=== PATIENT | female | born 1950 | race African-American/Black ===

== ENCOUNTER 2016-06-09 13:15 | Emergency (ER) | payer OTHER ==
[~2016-06-09] VITALS: Ht 157.5 cm; Wt 48.1 kg
[~2016-06-09 13:15] MED LIST: CIPRO500 MG PO; CLINDAMYCIN HC150 MG ORAL; COLACE100 MG ORAL; HEPARIN SO5000 UNIT2 SUBQ; HYDROCHLOROTHIA25 MG ORAL; HYDROCODON-ACE1 EA13 ORAL; LORAZEPAM2 MG ORAL; METFORMIN HCL500 M1 ORAL; METOPROLOL TART25 MG ORAL; MIRALAX17 G2 ORAL; MS CONTIN30 MG ORAL; SENOKOT8.6 MG PO; TRAMADOL HCL50 MG ORAL
[2016-06-09 13:42] VITALS: BP 144/96
[2016-06-09] MEDS ORDERED: Morphine Sulfate 2mg/ml Inj IVP ONE (13:45)
[2016-06-09] MEDS ORDERED: Lidocaine 1% 10mg/ml/EPI 0.01mg/ml 50ml INJ ONE (14:00)
[2016-06-09] MEDS ORDERED: Heparin 2000 units/Ns 1000ml INJ ONE (14:00)
--- NOTE | 2016-06-09 14:06 | Emergency Room Report ---
History of Present Illness General Chief Complaint: Dyspnea/Respdistress Source: Patient Present Illness HPI 65 YOF presents with SOB since last night. SOB on inspiration, not at rest. No CP at rest. Associated with "chills" but no measured fever. Denies abd pain, nausea/vomiting, diarrhea, urinary complaints. History of lung Ca with mets to spine. Recently completed course of chemo. On "followup currently." Denies other medical problems. Denies history of AMI, DVT/PE. Allergies: Coded Allergies: No Known Allergies (Unverified , 10/20/15) Patient History Past Medical History: other - lung CA Past Surgical History: none Pertinent Family History: none Social History: Denies: alcohol use, drug use, smoking Now: No Immunizations: UTD Reviewed Nursing Documentation: PMH: Agreed, PSxH: Agreed Nursing Documentation-PMH Hx Cardiac Problems: No - Hypertension Hx Hypertension: Yes Hx Cancer: Yes - lung Hx Gastrointestinal Problems: No Hx Neurological Problems: Yes - cord compression Review of Systems All Other Systems: negative except mentioned in HPI Physical Exam Vital Signs Date Time Temp Pulse Resp B/P Pulse Ox O2 Delivery O2 Flow Rate FiO2 06/09/16 13:20 97.5 86 18 144/96 100 Room Air Sp02 EP Interpretation: reviewed, normal General Appearance: normal inspection, well appearing, alert, GCS 15, non-toxic , mild distress Head: normocephalic, atraumatic Eyes: bilateral eye EOMI, bilateral eye PERRL ENT: normal ENT inspection, hearing grossly normal, normal voice Neck: normal inspection, full range of motion, supple, no bony tend Respiratory: normal inspection, lungs clear, normal breath sounds, no respiratory distress, no retraction, no accessory muscle use, speaking full sentences, other - poor respiratory effort. Cardiovascular #1: regular rate, rhythm, no edema, no JVD, normal capillary refill, other - bedside cardiac sono: no obvious large pericardial effusion Gastrointestinal: normal inspection, normal bowel sounds, non tender, soft, no guarding, no hernia Genitourinary: no CVA tenderness Musculoskeletal: normal inspection, back normal, normal range of motion, Herbie' s Sign negative Neurologic: normal inspection, alert, oriented x3, responsive, staff auditor III-XII nml as tested, motor strength/tone normal, speech normal Psychiatric: normal inspection, judgement/insight normal, mood/affect normal Skin: normal inspection Medical Decision Making Diagnostic Impression: Primary Impression: Dyspnea Qualified Codes: R06.00 - Dyspnea, unspecified Additional Impression: Pneumonia Qualified Codes: J18.9 - Pneumonia, unspecified organism ER Course VSS. Afebrile. Labs: No leuks. H&H stable. BNP elevation. Troponin 0. CXR: ?left perihilar infiltrate Dyspnea - elevated BNP but sat 02 100 on RA. not in overt clinical fluid overload - Unlikely PE despite Ca history given not hypoxic, tachypnic or tachycardic. - Significant contribution of anxiety. Required IV ativan, morphine as patient was hyperventilating - CXR with ?infiltrate. Blood Cx pending. Abx given Endorsed to Dr Nguyen for transfer at [facility] at 344pm EKG Diagnostic Results Rate: normal Rhythm: NSR ST Segments: no acute changes ASA given to the pt in ED: No Rhythm Strip Diag. Results EP Interpretation: yes Rate: 73 Rhythm: NSR, no PVC's, no ectopy Chest X-Ray Diagnostic Results EP Interpretation: Yes Findings: no effusion, no pneumothorax, no acute cardiopulmonary disease, other - ?left infiltrate Number of Views: 1 Last Vital Signs Date Time Temp Pulse Resp B/P Pulse Ox O2 Delivery O2 Flow Rate FiO2 06/09/16 13:42 86 18 Room Air 06/09/16 13:42 97.5 144/96 100 Status: improved Disposition: ADMITTED INPATIENT Condition: Serious AMAN DODD M.D. Jun 09, 2016 14:06
[2016-06-09] MEDS ORDERED: LORazepam Inj 2mg/ml 1ml IV ONE (14:15)
[2016-06-09 14:26] LABS: BASOPHILS % (AUTO) 0.8 % (0.0-2.0); EOSINOPHILS % (AUTO) 0.7 % (0.0-3.0); LYMPHOCYTES % (AUTO) 19.2 % (20.0-45.0); MEAN CORPUSCULAR HEMOGLOBIN 28.3 PG (27.0-31.0); MEAN CORPUSCULAR HGB CONC 31.4 G/DL (32.0-36.0); MEAN CORPUSCULAR VOLUME 90 FL (80-99); MEAN PLATELET VOLUME 8.6 FL (6.5-10.1); MONOCYTES % (AUTO) 2.8 % (1.0-10.0); NEUTROPHILS % (AUTO) 76.6 % (45.0-75.0); PLATELET COUNT 254 K/UL (150-450); RED CELL DISTRIBUTION WIDTH 13.2 % (11.6-14.8); WHITE BLOOD COUNT 5.3 K/UL (4.8-10.8)
[2016-06-09 14:42] LABS: TROPONIN I < 0.30 ng/mL (<=0.30)
[2016-06-09 14:43] LABS: ALANINE AMINOTRANSFERASE 17 U/L (3-33); ALBUMIN/GLOBULIN RATIO 1.2 (1.0-2.7); ANION GAP 19 (5-15); ASPARTATE AMINO TRANSFERASE 56 U/L (5-40); CALCIUM 10.3 mg/dL (8.6-10.2); CARBON DIOXIDE 22 mEQ/L (20-30); CHLORIDE 93 mEQ/L (98-107); CREATININE 0.4 mg/dL (0.5-0.9); GLOMERULAR FILTRATION RATE > 60 mL/min (>60); HEMOLYSIS 1; POTASSIUM 4.8 mEQ/L (3.4-4.9); SODIUM 134 mEQ/L (135-145); TOTAL PROTEIN 7.5 g/dL (6.6-8.7)
[2016-06-09 14:54] LABS: CKMB 1.8 ng/mL (< 3.8)
[2016-06-09 14:59] VITALS: BP 146/89
[2016-06-09] MEDS ORDERED: Azithromycin Inj IV ONE (15:14)
[2016-06-09] MEDS ORDERED: Azithromycin 500 MG in D5W 275 ML IVPB ONE (15:15)
[2016-06-09] MEDS ORDERED: cefTRIAXone 1 GM in NS 55 ML IVPB ONE (15:15)
[2016-06-09] MEDS ORDERED: Morphine Sulfate 4mg/ml Inj IVP ONE (15:45)
--- NOTE | 2016-06-09 16:32 | Diagnostic Imaging Report ---
Indication: Chest pain shortness of breath Technique: One view of the chest Comparison: none Findings: There is persistent elevation of the left hemidiaphragm, but decreased overall atelectatic change of the left lung base. There is questionably infiltrate in the left perihilar region. Lungs and pleural spaces are otherwise clear. Thoracic spinal fusion hardware is again demonstrated. Impression: Questionable left perihilar region focal infiltrate. No acute process otherwise. Other findings as noted
[2016-06-09 16:38] VITALS: BP 138/84
[2016-06-09 16:50] VITALS: BP 138/84
--- NOTE | 2016-06-10 23:10 | Cardiology Report ---
APPROVED REPORT EKG Measurement Heart [id number] Normal sinus rhythm Septal infarct, age undetermined Abnormal ECG
== END 2016-06-09 16:55 | disposition short-term general hospital (02) ==
LOC: EMR 14:41
DX: J18.9 Pneumonia, unspecified organism (principal); R06.00 Dyspnea, unspecified; I10 Essential (primary) hypertension; Z85.118 Personal history of other malignant neoplasm of bronchus and lung
CPT/HCPCS: 36415; 71010; 80053; 82550; 82553; 83880; 84484; 85025; 87040; 93005; 99285; J0456; J0696; J2270; J2405

== ENCOUNTER 2016-08-19 11:48 | Emergency (ER) | payer OTHER ==
[~2016-08-19] VITALS: Ht 162.6 cm; Wt 49.9 kg
[2016-08-19] MEDS ORDERED: ZOLPIDEM TARTRAT5 MG ORAL (12:08)
[2016-08-19] MEDS ORDERED: IBUPROFEN600 MG ORAL (12:08)
[2016-08-19] MEDS ORDERED: Morphine Sulfate 4mg/ml Inj IVP ONE (13:00)
[2016-08-19 13:24] LABS: BASOPHILS % (AUTO) 0.8 % (0.0-2.0); EOSINOPHILS % (AUTO) 0.6 % (0.0-3.0); LYMPHOCYTES % (AUTO) 20.3 % (20.0-45.0); MEAN CORPUSCULAR HEMOGLOBIN 26.4 PG (27.0-31.0); MEAN CORPUSCULAR VOLUME 85 FL (80-99); MEAN PLATELET VOLUME 9.1 FL (6.5-10.1); MONOCYTES % (AUTO) 3.2 % (1.0-10.0); NEUTROPHILS % (AUTO) 75.1 % (45.0-75.0); PLATELET COUNT 236 K/UL (150-450); RED BLOOD COUNT 5.06 M/UL (4.20-5.40); RED CELL DISTRIBUTION WIDTH 13.8 % (11.6-14.8); WHITE BLOOD COUNT 6.6 K/UL (4.8-10.8)
[2016-08-19 13:30] LABS: APPEARANCE,URINE CLEAR; KETONES,URINE NEGATIVE (NEGATIVE); LEUKOCYTE ESTERASE ,URINE NEGATIVE (NEGATIVE); NITRITE,URINE NEGATIVE (NEGATIVE); PH,URINE 7 (4.5-8.0); PROTEIN,URINE NEGATIVE (NEGATIVE); UROBILINOGEN,URINE NORMAL MG/DL (0.0-1.0)
[2016-08-19 13:35] LABS: BACTERIA,URINE FEW /HPF; SQUAMOUS EPITHELIAL CELL,UR FEW /LPF (NONE/OCC); WBC,URINE 0-2 /HPF (0 - 2)
[2016-08-19 13:44] LABS: TROPONIN I < 0.30 ng/mL (<=0.30)
[2016-08-19 13:47] LABS: ALANINE AMINOTRANSFERASE 19 U/L (3-33); ALBUMIN/GLOBULIN RATIO 0.9 (1.0-2.7); ANION GAP 17 (5-15); ASPARTATE AMINO TRANSFERASE 59 U/L (5-40); CALCIUM 9.1 mg/dL (8.6-10.2); CARBON DIOXIDE 24 mEQ/L (20-30); CHLORIDE 92 mEQ/L (98-107); CREATININE 0.5 mg/dL (0.5-0.9); GLOMERULAR FILTRATION RATE > 60 mL/min (>60); HEMOLYSIS 53; LIPASE 62 U/L (< 60); POTASSIUM 4.3 mEQ/L (3.4-4.9); SODIUM 133 mEQ/L (135-145); TOTAL PROTEIN 8.2 g/dL (6.6-8.7)
[2016-08-19 13:51] VITALS: BP 175/94
[2016-08-19 13:58] LABS: CKMB 1.9 ng/mL (< 3.8)
[2016-08-19] MEDS ORDERED: LEVAQUIN750 MG ORAL (14:32)
[2016-08-19 15:15] VITALS: BP 174/89
--- NOTE | 2016-08-19 16:15 | Diagnostic Imaging Report ---
Indication: SOB Technique: One view of the chest Comparison: 06/09/2016 Findings: There is suggestion of infiltrate in left perihilar region and infrahilar region. Band of scarring is seen in the left mid to lower lung. There is elevation of the left hemidiaphragm. Right lung, bilateral pleural spaces are clear. Thoracic spinal fusion hardware is again noted Impression: Possible left perihilar/infrahilar infiltrate Other stable findings as noted. Findings previously discussed by phone with Dr. Wick in the emergency room
--- NOTE | 2016-08-19 16:26 | Emergency Room Report ---
History of Present Illness General Chief Complaint: Dyspnea/Respdistress Source: Patient Present Illness HPI 66-year-old female presents to ED complaining of shortness of breath and abdominal pain. Started this morning. Patient notes history of lung CA. States she was recently discharged from another hospital for treatment of pneumonia. Patient denies any chest pain. Notes cramping abdominal pain with diarrhea. 10/15, nonradiating. Denies fevers or chills. Denies nausea or vomiting. No aggravating or relieving factors. Denies any other associated symptoms Allergies: Coded Allergies: No Known Allergies (Unverified , 10/20/15) Patient History Past Medical History: HTN, other - lung cancer Past Surgical History: none Pertinent Family History: none Social History: Denies: alcohol use, drug use, smoking Now: No Immunizations: UTD Reviewed Nursing Documentation: PMH: Agreed, PSxH: Agreed Nursing Documentation-PMH Hx Cardiac Problems: No - Hypertension Hx Hypertension: Yes Hx Cancer: Yes - lung Hx Gastrointestinal Problems: No Hx Neurological Problems: Yes - cord compression Review of Systems All Other Systems: negative except mentioned in HPI Physical Exam Vital Signs Date Time Temp Pulse Resp B/P Pulse Ox O2 Delivery O2 Flow Rate FiO2 08/19/16 12:02 97.9 78 16 111/80 98 Room Air Sp02 EP Interpretation: reviewed, normal General Appearance: no apparent distress, alert, GCS 15, non-toxic Head: normocephalic, atraumatic Eyes: bilateral eye PERRL, bilateral eye normal inspection ENT: hearing grossly normal, normal pharynx, no angioedema, normal voice Neck: full range of motion, supple/symm/no masses Respiratory: chest non-tender, lungs clear, normal breath sounds, speaking full sentences Cardiovascular #1: regular rate, rhythm, no edema Cardiovascular #2: 2+ carotid (R), 2+ carotid (L), 2+ radial (R), 2+ radial (L) , 2+ dorsalis pedis (R), 2+ dorsalis pedis (L) Gastrointestinal: normal bowel sounds, soft, non-distended, no guarding, no rebound, tenderness Rectal: deferred Genitourinary: normal inspection, no CVA tenderness Musculoskeletal: back normal, gait/station normal, normal range of motion, non- tender Neurologic: alert, oriented x3, responsive, motor strength/tone normal, sensory intact, speech normal Psychiatric: judgement/insight normal, memory normal, mood/affect normal, no suicidal/homicidal ideation Reflexes: 3+ bicep (R), 3+ bicep (L), 3+ tricep (R), 3+ tricep (L), 3+ knee (R) , 3+ knee (L) Skin: normal color, no rash, warm/dry, well hydrated Lymphatic: no adenopathy Medical Decision Making Diagnostic Impression: Primary Impression: Pneumonia Qualified Codes: J18.1 - Lobar pneumonia, unspecified organism Additional Impression: Gastroenteritis ER Course Hospital Course 66-year-old female presents to ED complaining of SOB, cough. abdominal pain Differential diagnoses include: URI, bronchitis, asthma/COPD, pneumonia Clinical course Patient placed on stretcher. After initial history, physical exam reveals an elderly female in no acute distress. Bilateral TM unremarkable. No pharyngeal erythema. No tonsillar exudates. No lymphadenopathy. lungs clear. I ordered labs, IV fluids, meds, chest x-ray. Labs reviewed- no leukocytosis noted, hemoglobin/hematocrit stable, electrolytes okay, trop negative Chest x-ray shows L perihilar infiltrate EKG - sinus rhythm, no ischemic changes interpreted by me On reassessment patient states she feels better. wishses to be discharged. Per curb-65 criteria, patient does not require admission. Patient can be safely discharged to home with outpatient therapy. Patient agrees with plan. Diagnosis - pneumonia, gastroenteritis Stable and discharged home with prescriptions for Levaquin. Instructed to followup with PMD. Return to ED if symptoms recur or worsen Labs Test 08/19/16 13:00 08/19/16 13:23 White Blood Count 6.6 K/UL (4.8-10.8) Red Blood Count 5.06 M/UL (4.20-5.40) Hemoglobin 13.3 G/DL (12.0-16.0) Hematocrit 43.1 % (37.0-47.0) Mean Corpuscular Volume 85 FL (80-99) Mean Corpuscular Hemoglobin 26.4 PG (27.0-31.0) Mean Corpuscular Hemoglobin Concent 31.0 G/DL (32.0-36.0) Red Cell Distribution Width 13.8 % (11.6-14.8) Platelet Count 236 K/UL (150-450) Mean Platelet Volume 9.1 FL (6.5-10.1) Neutrophils (%) (Auto) 75.1 % (45.0-75.0) Lymphocytes (%) (Auto) 20.3 % (20.0-45.0) Monocytes (%) (Auto) 3.2 % (1.0-10.0) Eosinophils (%) (Auto) 0.6 % (0.0-3.0) Basophils (%) (Auto) 0.8 % (0.0-2.0) Urine Color Pale yellow Urine Appearance Clear Urine pH 7 (4.5-8.0) Urine Specific [place] 1.010 (1.005-1.035) Urine Protein Negative (NEGATIVE) Urine Glucose (UA) Negative (NEGATIVE) Urine Ketones Negative (NEGATIVE) Urine Occult Blood 1+ (NEGATIVE) Urine Nitrite Negative (NEGATIVE) Urine Bilirubin Negative (NEGATIVE) Urine Urobilinogen Normal MG/DL (0.0-1.0) Urine Leukocyte Esterase Negative (NEGATIVE) Urine RBC 2-4 /HPF (0 - 2) Urine WBC 0-2 /HPF (0 - 2) Urine Squamous Epithelial Cells Few /LPF (NONE/OCC) Urine Bacteria Few /HPF (NONE) Sodium Level 133 mEQ/L (135-145) Potassium Level 4.3 mEQ/L (3.4-4.9) Chloride Level 92 mEQ/L (98-107) Carbon Dioxide Level 24 mEQ/L (20-30) Anion Gap 17 (5-15) Blood Urea Nitrogen 10 mg/dL (7-23) Creatinine 0.5 mg/dL (0.5-0.9) Estimat Glomerular Filtration Rate > 60 mL/min (>60) Glucose Level 119 mg/dL (74-106) Calcium Level 9.1 mg/dL (8.6-10.2) Total Bilirubin 0.6 mg/dL (0.0-1.2) Aspartate Amino Transf (AST/SGOT) 59 U/L (5-40) Alanine Aminotransferase (ALT/SGPT) 19 U/L (3-33) Alkaline Phosphatase 136 U/L (35-104) Total Creatine Kinase 72 U/L (26-140) Creatine Kinase MB 1.9 ng/mL (< 3.8) Creatine Kinase MB Relative Index 2.6 Troponin I < 0.30 ng/mL (<=0.30) Pro-B-Type Natriuretic Peptide 3986 pg/mL (0-125) Total Protein 8.2 g/dL (6.6-8.7) Albumin 3.9 g/dL (3.5-5.2) Globulin 4.3 g/dL Albumin/Globulin Ratio 0.9 (1.0-2.7) Lipase 62 U/L (< 60) Lactic Acid Level 1.60 mmol/L (0.66-2.22) EKG Diagnostic Results Rate: normal Rhythm: NSR ST Segments: no acute changes ASA given to the pt in ED: No Rhythm Strip Diag. Results EP Interpretation: yes Rhythm: NSR, no PVC's, no ectopy Chest X-Ray Diagnostic Results Chest X-Ray Ordered: Yes # of Views/Limited/Complete: 1 View Interpretation: no effusion, no pneumothorax, no acute cardiopulmonary disease , other - ? L perihilar infiltrate Indication: Shortness of Breath Impression: Other - perihilar infiltrate Date Electronically Signed: Aug 19, 2016 Time Electronically Signed: 16:24 Interpreting ER Physician: Sam Wick MD Last Vital Signs Date Time Temp Pulse Resp B/P Pulse Ox O2 Delivery O2 Flow Rate FiO2 08/19/16 15:15 60 16 174/89 98 Room Air 08/19/16 13:51 97.1 Status: improved Disposition: HOME, SELF-CARE Condition: Stable Scripts Levofloxacin* (LEVAQUIN*) 750 Mg Tablet 750 MG ORAL DAILY, #5 TAB Prov: SAM WICK M.D. 08/19/16 Patient Instructions: Community-Acquired Pneumonia, Adult, [id number] SAM WICK M.D. Aug 19, 2016 16:26
== END 2016-08-19 15:22 | disposition home or self-care (01) ==
LOC: EMR 12:28
DX: J18.1 Lobar pneumonia, unspecified organism (principal); K52.9 Noninfective gastroenteritis and colitis, unspecified; R10.9 Unspecified abdominal pain; Z85.118 Personal history of other malignant neoplasm of bronchus and lung; I10 Essential (primary) hypertension
CPT/HCPCS: 36415; 71010; 80053; 81003; 82550; 82553; 83605; 83690; 83880; 84484; 85025; 93005; 96360; 96361; 96374; 96375; 99284; J2270; J2405; J7040

== ENCOUNTER 2016-12-28 10:12 | Inpatient (IN) | payer OTHER ==
[~2016-12-28] VITALS: Ht 162.6 cm; Wt 46.7 kg
[~2016-12-28 10:12] MED LIST changes: +IBUPROFEN600 MG ORAL; +LEVAQUIN750 MG ORAL; +ZOLPIDEM TARTRAT5 MG ORAL
[2016-12-28 10:25] VITALS: BP 156/97
--- NOTE | 2016-12-28 10:42 | Emergency Room Report ---
History of Present Illness General Chief Complaint: Abdominal Pain Source: Patient Present Illness HPI 66-year-old female history of hypertension, chronic pain, lung cancer, p/w epigastric pain for one day.. Patient states pain started last night after she took gabapentin for the first time, localized to epigastric area, non radiating, burning in nature, intermittent. No relieving or exacerbating factors. Severity is 5/10. Pt reports n/v, 3 episodes of nbnb vomiting, 2 episodes of watery non bloody diarrhea Denies fever, chills. No hx of abdominal surgeries. No hx of endoscopies/colonoscopies. No recent travel, no sick contacts, no recent antibiotic use Allergies: Coded Allergies: No Known Allergies (Unverified , 10/20/15) Patient History Past Medical History: see triage record Past Surgical History: none Pertinent Family History: none Reviewed Nursing Documentation: PMH: Agreed, PSxH: Agreed Nursing Documentation-PMH Hx Cardiac Problems: No - Hypertension Hx Hypertension: Yes Hx Cancer: Yes - Lung and "in my blood stream" Hx Gastrointestinal Problems: No Hx Neurological Problems: Yes - cord compression Review of Systems All Other Systems: negative except mentioned in HPI Physical Exam Vital Signs Date Time Temp Pulse Resp B/P (MAP) Pulse Ox O2 Delivery O2 Flow Rate FiO2 12/28/16 10:25 97.2 102 156/97 Room Air Sp02 EP Interpretation: reviewed, normal General Appearance: alert, GCS 15, non-toxic, mild distress Head: normocephalic, atraumatic Eyes: bilateral eye normal inspection, bilateral eye PERRL, bilateral eye EOMI ENT: normal ENT inspection, normal pharynx, normal voice, moist mucus membranes Neck: normal inspection, full range of motion, supple Respiratory: normal inspection, lungs clear, normal breath sounds, no respiratory distress, no retraction, no wheezing, speaking full sentences, chest symmetrical Cardiovascular #1: normal inspection, regular rate, rhythm, no edema, normal capillary refill Cardiovascular #2: 2+ radial (R), 2+ radial (L) Gastrointestinal: soft, non-distended, no guarding, other - Mild epigastric tenderness, no guarding no rebound, Aleman sign is negative Musculoskeletal: normal inspection, back normal, normal range of motion, non- tender Neurologic: normal inspection, alert, oriented x3, responsive, motor strength/ tone normal, sensory intact, normal gait, speech normal Psychiatric: normal inspection, judgement/insight normal, memory normal Skin: normal inspection, normal color, no rash, warm/dry, well hydrated, normal turgor Procedures Critical Care Time Critical Care Time 40 minutes of CC time 66-year-old female with nausea, epigastric pain Found to have NSTEMI VS: Tachycardic Airway patent. Not hypoxic. PLAN: IV access, labs, asa, heparin Anticipate admission to Tele CC time also includes review of labs, review of EMR, discussion with family, d/ w hospitalist CC could include dosing of pressors, additional Abx CC time does not include procedures Medical Decision Making Diagnostic Impression: Primary Impression: NSTEMI (non-ST elevated myocardial infarction) ER Course 66-year-old female with epigastric abdominal pain Differential Diagnosis: Gastritis, gastroenteritis, UTI/pyelo At this time abdomen is soft nontender, not likely to have acute intra- abdominal surgical pathology, will hold CT for now. Plan: Basic labs, ua, ekg Pepcid, maalox, pain control, IVF ER course: Patient has remained stable during ED stay. Pain improved. Troponin noted to be positive ~0.1 Aspirin given 325 mg heparin bolus and drip given morphine given for pain Disposition: Patient is to be admitted to telemetry D/W hospitalist Dr Zuniga who has accepted patient for admission Please note that this Emergency Department Report was dictated using [employer] technician technology software, occasionally this can lead to erroneous entry secondary to interpretation by the dictation equipment EKG Diagnostic Results EP Interpretation: Yes Rate: normal Rhythm: NSR ST Segments: No acute changes ASA given to patient: No Rhythm Strip EP Interpretation: Yes Rate: 97 Rhythm: NSR, no PVCs, no ectopy Chest X-ray CXR: Ordered: Yes 1 view Indication: Chest pain EP interpretation: Yes Interpretation: hardware noted in patient's back, mild cardiomegaly Impression: Mild cardiomegaly Electronically signed by Maria Eugenia Ogden MD Laboratory Tests Test 12/28/16 10:55 12/28/16 11:54 White Blood Count 9.8 K/UL (4.8-10.8) Red Blood Count 4.74 M/UL (4.20-5.40) Hemoglobin 12.6 G/DL (12.0-16.0) Hematocrit 39.9 % (37.0-47.0) Mean Corpuscular Volume 84 FL (80-99) Mean Corpuscular Hemoglobin 26.7 PG (27.0-31.0) L Mean Corpuscular Hemoglobin Concent 31.7 G/DL (32.0-36.0) L Red Cell Distribution Width 14.3 % (11.6-14.8) Platelet Count 249 K/UL (150-450) Mean Platelet Volume 8.4 FL (6.5-10.1) Neutrophils (%) (Auto) 81.9 % (45.0-75.0) H Lymphocytes (%) (Auto) 14.4 % (20.0-45.0) L Monocytes (%) (Auto) 2.9 % (1.0-10.0) Eosinophils (%) (Auto) 0.1 % (0.0-3.0) Basophils (%) (Auto) 0.7 % (0.0-2.0) Prothrombin Time 10.3 SEC (9.30-11.50) Prothrombin Time INR 1.0 (0.9-1.1) PTT 32 SEC (23-33) Sodium Level 128 MMOL/L (136-145) L Potassium Level 3.5 MMOL/L (3.5-5.1) Chloride Level 90 MMOL/L (98-107) L Carbon Dioxide Level 23 MMOL/L (21-32) Anion Gap 16 mmol/L (5-15) H Blood Urea Nitrogen 14 mg/dL (7-18) Creatinine 0.5 MG/DL (0.55-1.30) L Estimate Glomerular Filtration Rate > 60 mL/min (>60) Glucose Level 153 MG/DL (74-106) H Calcium Level 9.9 MG/DL (8.5-10.1) Total Bilirubin 0.7 MG/DL (0.2-1.0) Aspartate Amino Transferase (AST) 117 U/L (15-37) H Alanine Aminotransferase (ALT) 24 U/L (12-78) Alkaline Phosphatase 196 U/L (46-116) H Troponin I 0.139 ng/mL (0.000-0.056) Pro-B-Type Natriuretic Peptide 6806 pg/mL (0-125) H Total Protein 8.6 G/DL (6.4-8.2) H Albumin 3.5 G/DL (3.4-5.0) Globulin 5.1 g/dL Albumin/Globulin Ratio 0.7 (1.0-2.7) L Lipase 251 U/L (73-393) Urine Color Pale yellow Urine Appearance Clear Urine pH 7 (4.5-8.0) Urine Specific [place] 1.010 (1.005-1.035) Urine Protein Negative (NEGATIVE) Urine Glucose (UA) Negative (NEGATIVE) Urine Ketones Negative (NEGATIVE) Urine Occult Blood Negative (NEGATIVE) Urine Nitrite Negative (NEGATIVE) Urine Bilirubin Negative (NEGATIVE) Urine Urobilinogen Normal MG/DL (0.0-1.0) Urine Leukocyte Esterase Negative (NEGATIVE) Last Vital Signs Date Time Temp Pulse Resp B/P (MAP) Pulse Ox O2 Delivery O2 Flow Rate FiO2 12/28/16 10:25 Room Air Disposition: ADMITTED INPATIENT Condition: Serious Maria Eugenia Ogden M.D. Dec 28, 2016 10:42
[2016-12-28] MEDS ORDERED: Tubing IV Cassette IV ONE (10:56)
[2016-12-28 11:23] LABS: BASOPHILS % (AUTO) 0.7 % (0.0-2.0); EOSINOPHILS % (AUTO) 0.1 % (0.0-3.0); LYMPHOCYTES % (AUTO) 14.4 % (20.0-45.0); MEAN CORPUSCULAR HEMOGLOBIN 26.7 PG (27.0-31.0); MEAN CORPUSCULAR HGB CONC 31.7 G/DL (32.0-36.0); MEAN CORPUSCULAR VOLUME 84 FL (80-99); MEAN PLATELET VOLUME 8.4 FL (6.5-10.1); MONOCYTES % (AUTO) 2.9 % (1.0-10.0); NEUTROPHILS % (AUTO) 81.9 % (45.0-75.0); PLATELET COUNT 249 K/UL (150-450); RED BLOOD COUNT 4.74 M/UL (4.20-5.40); RED CELL DISTRIBUTION WIDTH 14.3 % (11.6-14.8); WHITE BLOOD COUNT 9.8 K/UL (4.8-10.8)
[2016-12-28 12:00] LABS: ALANINE AMINOTRANSFERASE 24 U/L (12-78); ALBUMIN/GLOBULIN RATIO 0.7 (1.0-2.7); ANION GAP 16 mmol/L (5-15); ASPARTATE AMINO TRANSFERASE 117 U/L (15-37); CALCIUM 9.9 MG/DL (8.5-10.1); CARBON DIOXIDE 23 MMOL/L (21-32); CHLORIDE 90 MMOL/L (98-107); CREATININE 0.5 MG/DL (0.55-1.30); GLOMERULAR FILTRATION RATE > 60 mL/min (>60); LIPASE 251 U/L (73-393); POTASSIUM 3.5 MMOL/L (3.5-5.1); SODIUM 128 MMOL/L (136-145); TOTAL PROTEIN 8.6 G/DL (6.4-8.2)
[2016-12-28 12:17] LABS: APPEARANCE,URINE CLEAR; KETONES,URINE NEGATIVE (NEGATIVE); LEUKOCYTE ESTERASE ,URINE NEGATIVE (NEGATIVE); NITRITE,URINE NEGATIVE (NEGATIVE); PH,URINE 7 (4.5-8.0); PROTEIN,URINE NEGATIVE (NEGATIVE); UROBILINOGEN,URINE NORMAL MG/DL (0.0-1.0)
[2016-12-28 12:27] LABS: PROTHROMBIN TIME 10.3 SEC (9.30-11.50)
[2016-12-28] MEDS ORDERED: Heparin 5000 units/ml inj IV ONE ×2 (13:00→22:00)
[2016-12-28] MEDS ORDERED: Morphine Sulfate 2mg/ml Inj IVP ONE (13:00)
[2016-12-28] MEDS: Heparin 25,000u/D5W 500ml 500 ML IV SCH ×4 (13:56→22:29)
--- NOTE | 2016-12-28 14:44 | Diagnostic Imaging Report ---
Indication: Chest pain Technique: One view of the chest Comparison: 08/19/2016 Findings: Ill-defined peripheral area of increased attenuation is seen in the right midlung, not evident previously. There is increased ill-defined opacity in left perihilar region and lung base. Stable linear scarring is seen in the left midlung periphery. Persistent elevation left hemidiaphragm noted. The pleural spaces are probably clear. Heart is upper limits of normal in size. There is mild central bronchial wall thickening. Final fusion hardware is again demonstrated. Impression: Increasing left perihilar and basilar opacity. This may represent an enlarging mass, as per discussion with referring physician, patient has history of lung carcinoma New peripheral opacity in the right midlung. This may represent area of infiltrate, versus neoplasm. Consider chest CT for better characterization if clinically indicated Findings discussed by phone with Dr. Ogden at the time of interpretation
[2016-12-28 16:30] VITALS: BP 131/71
[2016-12-28] MEDS ORDERED: Norco 10mg/325mg tab ORAL PRN (19:00)
[2016-12-28] MEDS ORDERED: LORazepam 1mg tab ORAL PRN ×2 (19:00→20:00)
[2016-12-28] MEDS ORDERED: Zolpidem 5mg tab ORAL PRN (19:00)
[2016-12-28 20:00] VITALS: BP 114/86
[2016-12-28] MEDS: Hydromorphone 0.5mg/0.5ml inj IVP PRN (21:32)
[2016-12-28] MEDS: NovoLOG Insulin Flexpen SUBQ SCH (22:26)
[2016-12-29] VITALS (7 sets, daily range): BP systolic 91–117; BP diastolic 47–86
[2016-12-29] MEDS: Hydromorphone 0.5mg/0.5ml inj IVP PRN ×2 (04:26→12:10)
[2016-12-29 05:36] LABS: EOSINOPHILS % (AUTO) 2.1 % (0.0-3.0); LYMPHOCYTES % (AUTO) 25.1 % (20.0-45.0); MEAN CORPUSCULAR HEMOGLOBIN 28.6 PG (27.0-31.0); MEAN CORPUSCULAR HGB CONC 33.8 G/DL (32.0-36.0); MEAN CORPUSCULAR VOLUME 85 FL (80-99); MONOCYTES % (AUTO) 6.1 % (1.0-10.0); NEUTROPHILS % (AUTO) 65.7 % (45.0-75.0); PLATELET COUNT 277 K/UL (150-450); RED BLOOD COUNT 4.27 M/UL (4.20-5.40); RED CELL DISTRIBUTION WIDTH 14.3 % (11.6-14.8); WHITE BLOOD COUNT 8.5 K/UL (4.8-10.8)
[2016-12-29] MEDS ORDERED: Heparin 25,000u/D5W 500ml 500 ML IV SCH (06:15)
[2016-12-29] MEDS ORDERED: Heparin 5000 units/ml inj IV ONE (06:15)
[2016-12-29] MEDS: NovoLOG Insulin Flexpen SUBQ SCH ×4 (06:30→20:58)
[2016-12-29 07:55] LABS: ALANINE AMINOTRANSFERASE 30 U/L (12-78); ALBUMIN/GLOBULIN RATIO 0.7 (1.0-2.7); ANION GAP 16 mmol/L (5-15); ASPARTATE AMINO TRANSFERASE 87 U/L (15-37); CARBON DIOXIDE 20 MMOL/L (21-32); CHLORIDE 97 MMOL/L (98-107); CREATININE 0.6 MG/DL (0.55-1.30); GLOMERULAR FILTRATION RATE > 60 mL/min (>60); POTASSIUM 3.6 MMOL/L (3.5-5.1); SODIUM 133 MMOL/L (136-145); TOTAL PROTEIN 7.4 G/DL (6.4-8.2)
[2016-12-29] MEDS ORDERED: Docusate 100mg cap ORAL SCH (09:00)
[2016-12-29] MEDS ORDERED: Metoprolol 25mg tab ORAL SCH (09:00)
--- NOTE | 2016-12-29 11:49 | Diagnostic Imaging Report ---
INDICATION: 66-year-old female with history of hypertension, chronic pain, lung cancer, epigastric pain, nausea and vomiting, diarrhea TECHNIQUE: Patient ingested oral contrast. No IV contrast, per referring physician request. Spiral acquisitions obtained through the chest, abdomen, and pelvis Multiplanar reconstructions were generated. Total dose length product 624 mGycm. CTDIvol(s) 10 mGy. Radiation dose was minimized using automated exposure control COMPARISON: None FINDINGS Chest: Large mass is seen occupying much of the left lower lobe, extending anteriorly to the major fissure.. This measures approximately 5.7 cm AP by 6.2 cm transverse by 10.6 cm craniocaudad. This appears to narrow multiple lower lobe bronchi. Calcifications are seen within the superior and central aspect of the mass. Multiple small nodules are seen scattered throughout the chest, measuring up to 8 mm long axis dimension. There are also calcified mediastinal and left hilar lymph nodes. There is right paratracheal adenopathy, with the largest right paratracheal node measuring 2.4 cm long axis dimension. There is mild thickening of the right major fissure. Some scarring is seen in the peripheral right middle lobe. There is trace pleural fluid bilaterally. There are prominent but not frankly enlarged axillary nodes. Multiple small thyroid nodules are demonstrated bilaterally, predominantly in the lower poles. The heart is enlarged The bones demonstrate numerous osteolytic lesions. These are seen within the right scapula, lower cervical spine, within the thoracic spine, medial left clavicle and within multiple ribs bilaterally. The rib lesions are expansile and destructive. There is thoracic spine fusion hardware and multiple laminectomy defects noted. There is a wedge/burst compression fracture of the T7 vertebral body Abdomen pelvis: Lack of IV contrast limits assessment of the solid organs. The liver, gallbladder, bile ducts, pancreas, spleen, adrenals, kidneys are grossly unremarkable. No retroperitoneal or mesenteric mass or adenopathy. The uterus demonstrates calcifications, consistent with old degenerative fibroids. No pelvic mass or adenopathy. There is extensive osteolytic destruction of the left posterior medial iliac bone, with a large obstructive mass extends into the soft tissues, measures 8.6 x 7.1 x 8.4 cm. This also extends into the left sacral wing, destroying the cortex and the periphery. There is a soft tissue mass within the distal sacral spinal canal, beginning at the S2 level, which measures 2.3 x 2 cm. An osteolytic lesion of the left acetabulum is noted. There is a osteolytic lesion of the right iliac wing, and involvement of the L1 and L3 vertebral bodies. The appendix is normal. The colon demonstrates diverticulosis. No evidence of diverticulitis. No small bowel distention or small bowel wall thickening. Contrast is seen throughout the entirety of the small bowel and colon. The stomach is unremarkable. IMPRESSION: Large left lower lobe mass, suspect primary pulmonary malignancy. Extensive disseminated osteolytic lesions, consistent with osseous metastases. Largest of these is in the left posterior iliac bone, which is essentially completely destroyed. Multiple lung nodules, presumably also secondary to pulmonary metastases Right paratracheal lymphadenopathy Multiple small thyroid nodules, nonspecific Trace bilateral pleural fluid Cardio mainly Evidence of prior spinal fusion and decompression T7 vertebral body wedge/burst compression fracture deformity, age indeterminate Other findings as noted, including colonic diverticulosis, calcified uterine fibroids The CT scanner at [facility] is accredited by the [employer] and the scans are performed using protocols designed to limit radiation exposure to as low as reasonably achievable to attain images of sufficient resolution adequate fo -- r diagnostic evaluation.
--- NOTE | 2016-12-29 14:03 | Consultation ---
History of Present Illness General Date patient seen: Dec 29, 2016 Chief Complaint: Present Illness Allergies: Coded Allergies: No Known Allergies (Unverified , 10/20/15) Medication History Scheduled Ciprofloxacin* (Cipro*), 500 MG PO BID, (Reported) Clindamycin Hcl* (Clindamycin Hcl*), 300 MG ORAL TID, (Reported) Docusate Sodium* (Colace*), 100 MG ORAL TWICE A DAY, (Reported) Hydrochlorothiazide* (Hydrochlorothiazide*), 25 MG ORAL DAILY, (Reported) Hydrocodone Bit/Acetaminophen 10-325* (Hydrocodon-Acetaminophn 10-325*), 1 TAB ORAL Q4H, (Reported) Levofloxacin* (Levaquin*), 750 MG ORAL DAILY Lorazepam* (Lorazepam*), 2 MG ORAL PRN, (Reported) Metformin Hcl* (Metformin Hcl*), 500 MG ORAL DAILY, (Reported) Metoprolol Tartrate* (Metoprolol Tartrate*), 25 MG ORAL DAILY, (Reported) Polyethylene Glycol 3350* (Miralax*), 17 GM ORAL DAILY, (Reported) Sennosides (Senokot), 17.2 MG PO DAILY, (Reported) Scheduled PRN Ibuprofen* (Motrin*), 200 MG ORAL Q8H PRN for For Pain, (Reported) Morphine Sulfate* (Ms Contin*), 15 MG ORAL BID PRN for For Pain, (Reported) Tramadol Hcl* (Ultram*), 50 MG ORAL Q6H PRN for For Pain, (Reported) Zolpidem Tartrate* (Zolpidem Tartrate*), 5 MG ORAL BEDTIME PRN for Insomnia, ( Reported) Patient History Healthcare decision maker Resuscitation status Full Code Advanced Directive on File No Physical Exam Last 24 Hour Vital Signs Date Time Temp Pulse Resp B/P (MAP) Pulse Ox O2 Delivery O2 Flow Rate FiO2 12/29/16 12:00 97.7 95 20 100/86 96 Room Air 12/29/16 12:00 103 12/29/16 08:00 97.0 99 20 105/59 96 Room Air 12/29/16 08:00 91 12/29/16 04:00 108 12/29/16 04:00 97.9 103 18 117/47 98 Room Air 12/29/16 00:00 99 12/29/16 00:00 98.2 103 19 106/80 97 Room Air 12/28/16 20:00 97.4 105 18 114/86 98 Room Air 12/28/16 20:00 105 12/28/16 16:30 97.2 104 18 131/71 96 Room Air 12/28/16 15:28 97.2 104 20 144/82 100 Room Air Intake and Output 12/29/16 12/30/16 19:00 07:00 Intake Total 207.696 ml Balance 207.696 ml IV Total 207.696 ml Laboratory Tests Test 12/28/16 14:50 12/28/16 20:20 12/28/16 21:44 12/29/16 05:00 Troponin I 0.541 ng/mL (0.000-0.056) 0.619 ng/mL (0.000-0.056) 0.422 ng/mL (0.000-0.056) Activated Partial Thromboplast Time 34 SEC (23-33) H 50 SEC (23-33) H White Blood Count 8.5 K/UL (4.8-10.8) Red Blood Count 4.27 M/UL (4.20-5.40) Hemoglobin 12.2 G/DL (12.0-16.0) Hematocrit 36.1 % (37.0-47.0) L Mean Corpuscular Volume 85 FL (80-99) Mean Corpuscular Hemoglobin 28.6 PG (27.0-31.0) Mean Corpuscular Hemoglobin Concent 33.8 G/DL (32.0-36.0) Red Cell Distribution Width 14.3 % (11.6-14.8) Platelet Count 277 K/UL (150-450) Mean Platelet Volume 9.0 FL (6.5-10.1) Neutrophils (%) (Auto) 65.7 % (45.0-75.0) Lymphocytes (%) (Auto) 25.1 % (20.0-45.0) Monocytes (%) (Auto) 6.1 % (1.0-10.0) Eosinophils (%) (Auto) 2.1 % (0.0-3.0) Basophils (%) (Auto) 1.0 % (0.0-2.0) Sodium Level 133 MMOL/L (136-145) L Potassium Level 3.6 MMOL/L (3.5-5.1) Chloride Level 97 MMOL/L (98-107) L Carbon Dioxide Level 20 MMOL/L (21-32) L Anion Gap 16 mmol/L (5-15) H Blood Urea Nitrogen 16 mg/dL (7-18) Creatinine 0.6 MG/DL (0.55-1.30) Estimat Glomerular Filtration Rate > 60 mL/min (>60) Glucose Level 113 MG/DL (74-106) H Calcium Level 9.0 MG/DL (8.5-10.1) Total Bilirubin 0.5 MG/DL (0.2-1.0) Aspartate Amino Transf (AST/SGOT) 87 U/L (15-37) H Alanine Aminotransferase (ALT/SGPT) 30 U/L (12-78) Alkaline Phosphatase 156 U/L (46-116) H Total Protein 7.4 G/DL (6.4-8.2) Albumin 3.0 G/DL (3.4-5.0) L Globulin 4.4 g/dL Albumin/Globulin Ratio 0.7 (1.0-2.7) L Test 12/29/16 12:40 Activated Partial Thromboplast Time 65 SEC (23-33) H Troponin I 0.252 ng/mL (0.000-0.056) Height (Feet): 5 Height (Inches): 4.00 Weight (Pounds): 103 Medications Current Medications Medications (Trade) Dose Ordered Sig/Neymar Route PRN Reason Start Time Stop Time Status Last Admin Dose Admin Acetaminophen (Tylenol) 650 mg Q6H PRN ORAL Mild Pain/Temp > 100.5 12/28/16 18:45 01/27/17 18:44 Acetaminophen/ Hydrocodone Bitart ([place] 10/325) 1 ea Q4H PRN ORAL For Pain Scale 4-10 12/28/16 19:00 01/04/17 18:59 Dextrose (Dextrose 50%) STAT PRN IV Hypoglycemia 12/28/16 19:00 01/27/17 18:59 Docusate Sodium (Colace) 100 mg TWICE A DAY ORAL 12/29/16 09:00 01/28/17 08:59 12/29/16 08:28 Heparin Sodium/ Dextrose 500 ml @ 19.232 mls/ hr adjust per protocol IV 12/29/16 06:15 01/28/17 06:14 12/29/16 06:32 Hydrochlorothiazide (Hydrodiuril) 25 mg DAILY ORAL 12/29/16 09:00 01/28/17 08:59 Hydromorphone HCl (Dilaudid) 1 mg Q4H PRN IVP Severe Pain (Pain Scale 7-10) 12/28/16 18:45 01/04/17 18:44 12/29/16 12:10 Insulin Aspart (NovoLOG) BEFORE MEALS AND HS SUBQ 12/28/16 21:00 01/27/17 20:59 12/28/16 22:26 Lorazepam (Ativan) 2 mg Q8H PRN ORAL For Anxiety 12/28/16 20:00 01/04/17 19:59 Metoprolol Tartrate (Lopressor) 25 mg DAILY ORAL 12/29/16 09:00 01/28/17 08:59 Ondansetron HCl (Zofran) 4 mg Q6H PRN IVP Nausea & Vomiting 12/28/16 18:45 01/27/17 18:44 12/29/16 03:50 Sodium Chloride 1,000 ml @ 50 mls/hr Q20H IV 12/28/16 20:20 01/27/17 20:19 12/28/16 20:26 Zolpidem Tartrate (Ambien) 5 mg HSPRN PRN ORAL Insomnia 12/28/16 19:00 01/04/17 18:59 Assessment/Plan Assessment/Plan (1) Lung Cancer with mets to bone (2) Intractable pain (3) H/o spinal surgery seen dictatedFIFI BOWEN Dec 29, 2016 14:03
--- NOTE | 2016-12-29 15:13 | Cardiac Electrophysiology PN ---
Subjective Subjective [id number] Objective Last 24 Hour Vital Signs Date Time Temp Pulse Resp B/P (MAP) Pulse Ox O2 Delivery O2 Flow Rate FiO2 12/29/16 12:00 97.7 95 20 100/86 96 Room Air 12/29/16 12:00 103 12/29/16 08:00 97.0 99 20 105/59 96 Room Air 12/29/16 08:00 91 12/29/16 04:00 108 12/29/16 04:00 97.9 103 18 117/47 98 Room Air 12/29/16 00:00 99 12/29/16 00:00 98.2 103 19 106/80 97 Room Air 12/28/16 20:00 97.4 105 18 114/86 98 Room Air 12/28/16 20:00 105 12/28/16 16:30 97.2 104 18 131/71 96 Room Air 12/28/16 15:28 97.2 104 20 144/82 100 Room Air Intake and Output 12/29/16 12/30/16 19:00 07:00 Intake Total 484.624 ml Balance 484.624 ml IV Total 484.624 ml Laboratory Tests Test 12/28/16 20:20 12/28/16 21:44 12/29/16 05:00 12/29/16 12:40 Activated Partial Thromboplast Time 34 SEC (23-33) H 50 SEC (23-33) H 65 SEC (23-33) H Troponin I 0.619 ng/mL (0.000-0.056) 0.422 ng/mL (0.000-0.056) 0.252 ng/mL (0.000-0.056) White Blood Count 8.5 K/UL (4.8-10.8) Red Blood Count 4.27 M/UL (4.20-5.40) Hemoglobin 12.2 G/DL (12.0-16.0) Hematocrit 36.1 % (37.0-47.0) L Mean Corpuscular Volume 85 FL (80-99) Mean Corpuscular Hemoglobin 28.6 PG (27.0-31.0) Mean Corpuscular Hemoglobin Concent 33.8 G/DL (32.0-36.0) Red Cell Distribution Width 14.3 % (11.6-14.8) Platelet Count 277 K/UL (150-450) Mean Platelet Volume 9.0 FL (6.5-10.1) Neutrophils (%) (Auto) 65.7 % (45.0-75.0) Lymphocytes (%) (Auto) 25.1 % (20.0-45.0) Monocytes (%) (Auto) 6.1 % (1.0-10.0) Eosinophils (%) (Auto) 2.1 % (0.0-3.0) Basophils (%) (Auto) 1.0 % (0.0-2.0) Sodium Level 133 MMOL/L (136-145) L Potassium Level 3.6 MMOL/L (3.5-5.1) Chloride Level 97 MMOL/L (98-107) L Carbon Dioxide Level 20 MMOL/L (21-32) L Anion Gap 16 mmol/L (5-15) H Blood Urea Nitrogen 16 mg/dL (7-18) Creatinine 0.6 MG/DL (0.55-1.30) Estimat Glomerular Filtration Rate > 60 mL/min (>60) Glucose Level 113 MG/DL (74-106) H Calcium Level 9.0 MG/DL (8.5-10.1) Total Bilirubin 0.5 MG/DL (0.2-1.0) Aspartate Amino Transf (AST/SGOT) 87 U/L (15-37) H Alanine Aminotransferase (ALT/SGPT) 30 U/L (12-78) Alkaline Phosphatase 156 U/L (46-116) H Total Protein 7.4 G/DL (6.4-8.2) Albumin 3.0 G/DL (3.4-5.0) L Globulin 4.4 g/dL Albumin/Globulin Ratio 0.7 (1.0-2.7) L SCAR LOBATO Dec 29, 2016 15:13
[2016-12-29] MEDS: HYDROmorphone 1mg/ml Carpuject IVP PRN ×2 (16:46→20:57)
--- NOTE | 2016-12-29 17:32 | Cardiology Report ---
APPROVED REPORT EXAM: Two-dimensional and M-mode echocardiogram with Doppler and color Doppler. INDICATION Elevated Troponin M-Mode DIMENSIONS IVSd1.3 (0.7-1.1cm)Left Atrium (MM)3.2 (1.6-4.0cm) LVDd4.3 (3.5-5.6cm)Aortic Root2.8 (2.0-3.7cm) PWd1.0 (0.7-1.1cm)Aortic Cusp Exc.2.4 (1.5-2.0cm) LVDs2.6 (2.5-4.0cm) PWs1.8 cm Normal left ventricular chamber size. Left ventricular distal 1/2 appear akinetic , proximal 1/2 appears hyerkinetic Left ventricular ejection fraction estimated to be 40 %. Mild left ventricular hypertrophy. Anterior Echo-free space, may be due to pericardial fat or effusion. All other cardiac chamber sizes are within normal limits. Mild focal aortic valve sclerosis with adequate cusp excursion. Mildly thickened mitral valve leaflets with normal excursion. Mildly mitral annulus and aortic root calcification. Pulmonic valve not well visualized. Normal tricuspid valve structure. IVC dilated at 1.6 cm with physiologic collapse, estimated RAP is 10 mmHg. CONSIDER TAKATSUBOS CARDIOMYOPATHY IN THE DIFFERENTIAL DIAGNOSIS A color flow and spectral Doppler study was performed and revealed: No aortic regurgitation. No mitral regurgitation. Left ventricular diastolic function could not be determined due to A-Fib. Moderate tricuspid regurgitation. Tricuspid systolic velocities suggests peak right ventricular systolic pressure of 41 mmHg, consistent with moderate pulmonary hypertension. No pulmonic regurgitation present.
[2016-12-29] MEDS ORDERED: Loperamide 2mg cap ORAL PRN (17:45)
--- NOTE | 2016-12-29 19:00 | Consultation ---
DATE OF CONSULTATION: 12/29/2016 PAIN MANAGEMENT CONSULTATION REFERRING PHYSICIAN: Andreas Camejo M.D. CONSULTING PHYSICIAN: John Jacques M.D. PHYSICIAN DEVELOPMENT VICE PRESIDENT: Will Villegas CHIEF COMPLAINT: Generalized body pain. HISTORY OF PRESENT ILLNESS: This is a 66-year-old female, who is being seen on the telemetry floor of [facility] for comprehensive pain management consultation. The patient is a known patient from Dr. Jacques's office, now admitted under the care of Dr. Camejo complaining of abdominal pain due to taking gabapentin and morphine extended release with nausea and vomiting and diarrhea, and now has been on Dilaudid 1 mg IV every four hours as needed for severe pain and [place] 10/325 mg every four hours as needed for moderate pain, taking Dilaudid 3 doses in the last 24 hours. Apparently, the pain has been better tolerated. She is doing better, no longer vomiting at this time. Abdominal pain has reduced, however, continues to complain of chronic pain throughout her body due to lung metastasis and history of spinal fusion. At this time, we were consulted so that the patient would have adequate pain control while here in the hospital and to reassess the patient's pain medication upon discharge. PAST MEDICAL HISTORY: Hypertension, lung cancer with mets to the bone, and history of spinal fusion. SOCIAL HISTORY: Denies smoking tobacco, drinking alcohol, or drug abuse. MEDICATIONS: [place], Cipro, Percocet, hydrochlorothiazide, metoprolol, Senokot, Motrin, Ultram and Levaquin. ALLERGIES: No known drug allergies. REVIEW OF SYSTEMS: Denies rash, fever, chills, sweating, dizziness, drowsiness, blurred vision, sore throat, or change in weight. No nausea, vomiting, diarrhea, or blood in the stool or urine. No bowel or bladder incontinence. No dysuria. She is complaining of generalized body pain. PHYSICAL EXAMINATION: GENERAL: Alert, awake, and oriented x3. VITAL SIGNS: Blood pressure 100/86, heart rate 75, oxygen saturation is 96%, respiratory rate 20, and temperature is 97.7 degrees Fahrenheit. Height is 5 feet 4 inches. Weight is 180 pounds. HEENT: PERRLA. NECK: Range of motion is decreased due to the patient's pain and condition. No tenderness to paracervical muscles. No adenopathy. LUNGS: Decreased breath sounds bilaterally. HEART: Regular. ABDOMEN: Tenderness to palpation. BACK: Range of motion is decreased in flexion and extension with surgical scar noted. EXTREMITIES: Upper extremity range of motion is decreased due to the patient's pain and condition. No cyanosis. No clubbing. No edema. Sensory is intact. There is no adenopathy. Lower extremity range of motion is decreased due to the patient's pain and condition. Motor is reduced. Reflexes are not obtainable. No adenopathy. ASSESSMENT AND PLAN: This is a 66-year-old female with lung cancer with metastasis to the bone, intractable pain, history of spinal surgery. The patient will be discontinued off the [place], start on Percocet 10/325 mg 1 tablet every 4 hours as needed for moderate pain. We will continue Dilaudid 1 mg IV every 4 hours as needed for severe pain. A prescription for Percocet 7.5/325 mg 1 tablet every 4 to 6 hours was written for the patient in anticipation for discharge. She was advised to follow up with us in the office for further assessment of pain medication. Advised to stop the morphine extended release and Neurontin at this time. The patient was discussed with Dr. Jacques and Dr. Jacques concurred. We will follow up with the patient. Thank you very much for the courtesy of this consultation. John Jacques M.D. PER Villegas DR: JANETTE JOB#: [id number] CC:
[2016-12-29] MEDS: Metoprolol 25mg tab ORAL SCH (20:58)
--- NOTE | 2016-12-29 23:30 | Consultation ---
DATE OF CONSULTATION: 12/29/2016 CARDIOLOGY CONSULTATION REASON FOR CONSULTATION: Elevated troponin in the patient with hypertension. HISTORY OF PRESENT ILLNESS: The patient is a 66-year-old lady with history of hypertension and lung cancer as well as history of chronic pain, presented to the emergency room with epigastric pain and burning. Pain was 5/10. The patient also had 3 episodes of vomiting and 3 episodes of watery nonbloody diarrhea. The patient was also noted to have elevated troponin, even though the troponin levels remained flat and actually downstreaming. At the time of my evaluation, the patient denied any chest pain, palpitation, or shortness of breath. A Cardiology consultation was obtained for further evaluation and management. PAST MEDICAL HISTORY: 1. Hypertension. 2. History of lung cancer. 3. Chronic back pain. SOCIAL HISTORY: She does not smoke or drink alcohol. FAMILY HISTORY: Noncontributory. REVIEW OF SYSTEMS: Negative other than what was mentioned in the history of present illness. PHYSICAL EXAMINATION: VITAL SIGNS: Blood pressure is 100/86, pulse 103, respirations 20, and temperature 97.7 degrees. HEAD AND NECK: No JVD. LUNGS: Clear. CARDIOVASCULAR: Regular S1 and S2 with no gallop or murmur. ABDOMEN: Soft and nontender. EXTREMITIES: No pitting edema. LABORATORY AND DIAGNOSTIC DATA: EKG, sinus rhythm with nonspecific ST-wave abnormality. Sodium 133, potassium 3.6, BUN of 6, creatinine 0.6, and glucose of 113. Troponin 0.5, 0.6, 0.4, and 0.25. White count 8.5, hemoglobin 12.2, hematocrit 36.1, and platelet count of 277. ASSESSMENT AND PLAN: 1. Minimal troponin elevation. Levels are flat, and the patient does not have any chest pain. EKG does not show any ST elevation. We will get an echocardiogram to evaluate for ejection fraction and wall motion abnormality. In the meantime, continue the patient on aspirin, Toprol, and Lipitor. We will schedule the patient for nuclear stress test and if that shows significant ischemia, then cardiac catheterization will be considered. 2. History of lung cancer. Further evaluation by Dr. Camejo. 3. Chronic back pain. The patient was evaluated by Dr. Jacques. 4. Diabetes, on metformin. Thank you very much, Dr. Camejo, for allowing me to participate in the care of this patient. Please do not hesitate to contact me for any questions regarding my evaluation. Franky Woodard M.D. DR: DENTON JOB#: [id number] CC:
[2016-12-30 00:21] VITALS: BP 93/64
[2016-12-30] MEDS: HYDROmorphone 1mg/ml Carpuject IVP PRN ×5 (03:04→20:51)
[2016-12-30 04:00] VITALS: BP 110/77
[2016-12-30] MEDS: NovoLOG Insulin Flexpen SUBQ SCH ×4 (06:17→20:52)
--- NOTE | 2016-12-30 08:22 | General Progress Note ---
Assessment/Plan Assessment/Plan (1) Lung Cancer with mets to bone (2) Intractable pain (3) H/o spinal surgery' Pt will be continued on Dilaudid and percocet D/w Dr. Jacques and he concurred. Subjective Date patient seen: Dec 30, 2016 Time patient seen: 07:15 - am Allergies: Coded Allergies: No Known Allergies (Unverified , 10/20/15) Subjective REVIEW OF SYSTEMS: Denies rash, fever, chills, sweating, dizziness, drowsiness, blurred vision, sore throat, or change in weight. No nausea, vomiting, diarrhea, or blood in the stool or urine. No bowel or bladder incontinence. No dysuria. She is complaining of generalized body pain. SUBJECTIVE: Pt is in bed continues to c/o pain which has been stable on the Dilaudid and Percocet. Objective Last 24 Hour Vital Signs Date Time Temp Pulse Resp B/P (MAP) Pulse Ox O2 Delivery O2 Flow Rate FiO2 12/30/16 04:00 85 12/30/16 04:00 97.2 106 20 110/77 97 Room Air 12/30/16 00:21 97.7 93 20 93/64 98 Room Air 12/30/16 00:00 99 12/29/16 20:58 96 94/71 12/29/16 20:00 104 12/29/16 19:22 97.3 96 20 94/71 97 Room Air 12/29/16 18:42 95/65 12/29/16 16:30 123 12/29/16 16:00 97.0 94 20 91/61 97 Room Air 12/29/16 12:00 97.7 95 20 100/86 96 Room Air 12/29/16 12:00 103 Laboratory Tests 12/29/16 12:40: Activated Partial Thromboplast Time 65H, Troponin I 0.252H 12/30/16 05:35: Troponin I 0.085H Height (Feet): 5 Height (Inches): 4.00 Weight (Pounds): 103 Objective PHYSICAL EXAMINATION: GENERAL: Alert, awake, and oriented x3. HEENT: PERRLA. NECK: Range of motion is decreased due to the patient's pain and condition. No tenderness to paracervical muscles. No adenopathy. LUNGS: Decreased breath sounds bilaterally. HEART: Regular. ABDOMEN: Tenderness to palpation. EXTREMITIES: No cyanosis. No clubbing. No edema. NEURO: No changes. FIFI BUSTILLO Dec 30, 2016 08:22
[2016-12-30 08:37] VITALS: BP 91/59
[2016-12-30] MEDS: Metoprolol 25mg tab ORAL SCH ×2 (09:00→20:50)
[2016-12-30] MEDS: Aspirin Baby 81mg ORAL SCH (09:05)
--- NOTE | 2016-12-30 09:46 | Consultation ---
DATE OF CONSULTATION: 12/29/2016 HEMATOLOGY/ONCOLOGY CONSULTATION CONSULTING PHYSICIAN: Edwin Lechuga M.D. REQUESTING PHYSICIAN: Andreas Camejo M.D. REASON FOR CONSULTATION: Evaluation of the patient for lung cancer. IDENTIFICATION DATA: Dear Dr. Camejo 00:18: The patient is a pleasant 66-year-old female with past medical history significant for lung cancer, status post chemotherapy and radiation, hypertension, chronic pain, epigastric pain, nausea and vomiting with an episode of nonbilious and nonbloody vomiting, and episodes of watery nonbloody diarrhea. Cardiology and Pain Management Service were consulted as well as GI team. No history of endoscopies or colonoscopies. She had a CAT scan of the chest, abdomen, and pelvis, which showed evidence of extensive osteolytic lesions consistent with osseous metastasis, multiple lung nodules, right lymphadenopathy. Multiple small recurrent nodules , mainly evidence of paraspinal fusion, T7 vertebral body wedge compression fracture. Hematology/Oncology service was consulted for further evaluation and treatment. PAST MEDICAL HISTORY: As noted above. PAST SURGICAL HISTORY: None known. SOCIAL HISTORY: No alcohol, tobacco, or illicit drug use. FAMILY HISTORY: Noncontributory. REVIEW OF SYSTEMS: CONSTITUTIONAL: No fever, chills, or night sweats. SKIN: No rashes, lumps, or itching. HEENT: No headache, hearing or vision changes. BREASTS: No lumps, pain, or discharge. PULMONARY: No cough, sputum, or shortness of breath. GASTROINTESTINAL: No nausea, vomiting, or diarrhea. GENITOURINARY: No dysuria, frequency, or urgency. MUSCULOSKELETAL: No joint swelling, muscle pain, or trauma. PHYSICAL EXAMINATION: VITAL SIGNS: Reviewed. GENERAL: No acute distress. PULMONARY: Decreased breath sounds. CARDIOVASCULAR: Regular rate. No S3 or S4. ABDOMEN: Soft, nontender, and nondistended. EXTREMITIES: 1+ edema. LABORATORY DATA: WBC 8.5, hemoglobin 12.2, hematocrit 36, and platelet count 277,000. INR of 1, PTT of 65, BUN of 16, and creatinine . ASSESSMENT AND RECOMMENDATIONS: 1. Stage IV lung cancer, has received chemotherapy with radiation, currently undergoing treatment from Dr. Connor at [facility]. Continue to monitor with him outpatient treatment. 2. Coagulopathy secondary to heparin drip. Continue to monitor. 3. Anemia secondary to chronic disease. 4. Intractable pain secondary to malignancy. 5. History of spinal surgery, status post fusion. I appreciate consultation. Edwin Lechuga M.D. DR: DAMIAN JOB#: [id number] CC:
[2016-12-30 11:59] VITALS: BP 103/69
--- NOTE | 2016-12-30 13:21 | Cardiac Electrophysiology PN ---
Assessment/Plan Status Narrative Normal left ventricular chamber size. Left ventricular distal 1/2 appear akinetic , proximal 1/2 appears hyerkinetic Left ventricular ejection fraction estimated to be 40 %. Mild left ventricular hypertrophy. Anterior Echo-free space, may be due to pericardial fat or effusion. All other cardiac chamber sizes are within normal limits. Mild focal aortic valve sclerosis with adequate cusp excursion. Mildly thickened mitral valve leaflets with normal excursion. Mildly mitral annulus and aortic root calcification. Pulmonic valve not well visualized. Normal tricuspid valve structure. IVC dilated at 1.6 cm with physiologic collapse, estimated RAP is 10 mmHg. CONSIDER TAKATSUBOS CARDIOMYOPATHY IN THE DIFFERENTIAL DIAGNOSIS Assessment/Plan 1. Troponin leak. Levels are flat, and the patient does not have any chest pain. EKG does not show any ST elevation. Continue aspirin , Toprol, and Lipitor. Nuclear stress test today is pending. 2. Cardiomyopathy with Ef 40%. Add lisinopril and aldactone 2. History of lung cancer. Further evaluation by Dr. Camejo. 3. Chronic back pain. The patient was evaluated by Dr. Jacques. 4. Diabetes, on metformin. Subjective Subjective Comfortable in NAD. Expecting stress test today. Objective Last 24 Hour Vital Signs Date Time Temp Pulse Resp B/P (MAP) Pulse Ox O2 Delivery O2 Flow Rate FiO2 12/30/16 11:59 97.5 80 19 103/69 98 Room Air 12/30/16 08:37 97.7 80 18 91/59 96 Room Air 12/30/16 08:00 83 12/30/16 04:00 85 12/30/16 04:00 97.2 106 20 110/77 97 Room Air 12/30/16 00:21 97.7 93 20 93/64 98 Room Air 12/30/16 00:00 99 12/29/16 20:58 96 94/71 12/29/16 20:00 104 12/29/16 19:22 97.3 96 20 94/71 97 Room Air 12/29/16 18:42 95/65 12/29/16 16:30 123 12/29/16 16:00 97.0 94 20 91/61 97 Room Air Laboratory Tests Test 12/30/16 05:35 Troponin I 0.085 ng/mL (0.000-0.056) Objective HEAD AND NECK: No JVD. LUNGS: Clear. CARDIOVASCULAR: Regular S1 and S2 with no gallop or murmur. ABDOMEN: Soft and nontender. EXTREMITIES: No pitting edema. SCAR LOBATO Dec 30, 2016 13:21
[2016-12-30] MEDS ORDERED: Lexiscan 0.4mg/5ml syringe IV ONE (14:15)
--- NOTE | 2016-12-30 14:36 | Nephrology Progress Note ---
Assessment/Plan Problem List: (1) Metastatic adenocarcinoma (2) Gastroenteritis (3) NSTEMI (non-ST elevated myocardial infarction) Plan H&P dictated - [id number] Subjective Constitutional: Denies: no symptoms, chills, diaphoresis, fever, malaise, weakness, other HEENT: Denies: no symptoms, eye pain, blurred vision, tearing, double vision, ear pain, ear discharge, nose pain, nose congestion, throat pain, throat swelling, mouth pain, mouth swelling, other Genitourinary: Denies: no symptoms, burning, discharge, frequency, flank pain, hematuria, incontinence, pain, urgency, other Neurologic/Psychiatric: Denies: no symptoms, anxiety, depressed, emotional problems, headache, numbness, paresthesia, pre-existing deficit, seizure, tingling, tremors, weakness, other Subjective In bed, in no apparent distress Objective Objective Last 24 Hour Vital Signs Date Time Temp Pulse Resp B/P (MAP) Pulse Ox O2 Delivery O2 Flow Rate FiO2 12/30/16 11:59 97.5 80 19 103/69 98 Room Air 12/30/16 08:37 97.7 80 18 91/59 96 Room Air 12/30/16 08:00 83 12/30/16 04:00 85 12/30/16 04:00 97.2 106 20 110/77 97 Room Air 12/30/16 00:21 97.7 93 20 93/64 98 Room Air 12/30/16 00:00 99 12/29/16 20:58 96 94/71 12/29/16 20:00 104 12/29/16 19:22 97.3 96 20 94/71 97 Room Air 12/29/16 18:42 95/65 12/29/16 16:30 123 12/29/16 16:00 97.0 94 20 91/61 97 Room Air Laboratory Tests 12/30/16 05:35: Troponin I 0.085H Height (Feet): 5 Height (Inches): 4.00 Weight (Pounds): 103 General Appearance: no apparent distress, alert EENT: normal ENT inspection Neck: non-tender, normal alignment Cardiovascular: normal rate, regular rhythm Respiratory/Chest: decreased breath sounds Abdomen: non tender, soft, no organomegaly Neurologic: alert, oriented x 3, responsive, normal mood/affect Egwu,Nanda N.P. Dec 30, 2016 14:36
--- NOTE | 2016-12-30 15:24 | Cardiology Report ---
APPROVED REPORT EKG Measurement Heart [id number] Normal sinus rhythm Low voltage QRS Cannot rule out Anterior infarct, age undetermined Abnormal ECG
[2016-12-30 15:57] VITALS: BP 100/69
--- NOTE | 2016-12-30 16:48 | Diagnostic Imaging Report ---
Indications: Chest pain and hypertension Technique: Single day single isotope protocol utilized. Initially, resting images obtained using IV administration 9.9 millicuries 99M technetium Myoview. Subsequently, patient underwent lexiscan stress testing. See cardiology report for details. During plexus can infusion, IV administration 32.4 mCi 99 M technetium Myoview. SPECT and planar images obtained. SPECT images gated to 8 phases of the cardiac cycle were also obtained, and reformatted into cine images for evaluation of ejection fraction. Comparison: None Findings: Per cardiology report, patient experienced shortness of breath. Per cardiology report, resting EKG demonstrates normal sinus rhythm with nonspecific ST-T wave changes and occasional PVCs, the latter more frequent during infusion. Imaging demonstrates equivocal fixed decreased apical perfusion. No reversible perfusion defects are demonstrated. Normal cardiac chamber size. Calculated post stress ejection fraction 68%. No focal wall motion abnormality Impression: Nonischemic clinical response to pharmacologic stress, per cardiology report Nonischemic electrocardiographic response to pharmacologic stress, per cardiology report Questional fixed apical perfusion defect, most likely artifactual due to soft tissue attenuation but could represent an infarct. No imaging findings to suggest ischemia, at level of stress achieved. Calculated post stress ejection fraction 68%
[2016-12-30 20:00] VITALS: BP 99/63
--- NOTE | 2016-12-30 22:17 | General Progress Note ---
Assessment/Plan Assessment/Plan ASSESSMENT AND RECOMMENDATIONS: 1. Stage IV lung cancer, has received chemotherapy with radiation, currently undergoing treatment from Dr. Connor at [facility]. Continue to monitor with him outpatient treatment. 2. Coagulopathy secondary to heparin drip. Continue to monitor. 3. Anemia secondary to chronic disease. Watch counts 4. Intractable pain secondary to malignancy. 5. History of spinal surgery, status post fusion. Subjective Constitutional: Reports: no symptoms HEENT: Reports: no symptoms Cardiovascular: Reports: no symptoms Respiratory: Reports: no symptoms Gastrointestinal/Abdominal: Reports: no symptoms Genitourinary: Reports: no symptoms Neurologic/Psychiatric: Reports: no symptoms Endocrine: Reports: no symptoms Hematologic/Lymphatic: Reports: no symptoms Allergies: Coded Allergies: No Known Allergies (Unverified , 10/20/15) Objective Last 24 Hour Vital Signs Date Time Temp Pulse Resp B/P (MAP) Pulse Ox O2 Delivery O2 Flow Rate FiO2 12/30/16 20:50 95 105/66 12/30/16 20:00 98.1 91 18 99/63 100 Room Air 12/30/16 16:00 100 12/30/16 15:57 97.0 95 18 100/69 97 Room Air 12/30/16 12:00 95 12/30/16 11:59 97.5 80 19 103/69 98 Room Air 12/30/16 08:37 97.7 80 18 91/59 96 Room Air 12/30/16 08:00 83 12/30/16 04:00 85 12/30/16 04:00 97.2 106 20 110/77 97 Room Air 12/30/16 00:21 97.7 93 20 93/64 98 Room Air 12/30/16 00:00 99 Intake and Output 12/30/16 12/31/16 19:00 07:00 Intake Total 1210 ml Balance 1210 ml Intake Oral 360 ml IV Total 850 ml # Voids 3 Laboratory Tests 12/30/16 05:35: Troponin I 0.085H 12/30/16 21:10: Troponin I 0.044 Height (Feet): 5 Height (Inches): 4.00 Weight (Pounds): 103 General Appearance: no apparent distress EENT: normal ENT inspection Neck: normal alignment Cardiovascular: regular rhythm Neurologic: magazine keeper II-XII grossly normal Edwin Lechuga Dec 30, 2016 22:17
[2016-12-31] VITALS: BP 82/53
--- NOTE | 2016-12-31 | HX and Phyl Repo 2 Sig ---
DATE OF ADMISSION: 12/28/2016 INTERNAL MEDICINE HISTORY AND PHYSICAL HISTORY OF PRESENT ILLNESS: The patient is a 66-year-old female with a past medical history significant for lung cancer, on chemotherapy and radiation treatment; history of hypertension; and chronic generalized pain, who presented to the emergency room with nausea and vomiting, epigastric pain, and episode of nonbilious, nonbloody vomiting as well as some diarrhea. The patient has been compliant with her chemotherapy and sees an oncologist on a regular basis. She has been admitted to the hospital for further evaluation. She denies chest pain. Denies fever or chills. PAST MEDICAL HISTORY: Lung cancer, hypertension, and chronic back pain. HOME MEDICATIONS: Docusate sodium 100 mg p.o. b.i.d., hydrochlorothiazide 25 mg p.o. daily, [place] 10/325 mg 1 tablet p.o. q.4 h. p.r.n., ibuprofen 200 mg t.i.d. p.r.n., lorazepam 2 mg p.o. daily p.r.n., metformin 500 mg p.o. daily, metoprolol 25 mg p.o. daily, Ms Contin 30 mg p.o. b.i.d., Senokot 17.2 mg p.o. daily, Ultram 50 mg p.o. q.6 h. p.r.n., and zolpidem 5 mg p.o. daily p.r.n. ALLERGIES: She has no known allergies. SOCIAL HISTORY: She lives at home with family. Denies smoking, alcohol use, or illicit drug use. FAMILY HISTORY: Noncontributory. REVIEW OF SYSTEMS: A full 12-point review of systems was reviewed with the patient and positives as stated in the HPI. PHYSICAL EXAMINATION: GENERAL: This is a 66-year-old female, in no apparent distress. VITAL SIGNS: Blood pressure 103/69, heart rate is 80, respiratory rate 19, temperature is 97.5 degrees, and O2 saturation is 98% on room air. HEENT: Head is normocephalic and atraumatic. Pupils are equal, round, and reactive to light and accommodation. NECK: Supple. No JVD noted. LUNGS: Diminished bilaterally. CARDIOVASCULAR: Regular rate and rhythm. ABDOMEN: Soft, nontender, and nondistended. Positive bowel sounds in all 4 quadrants. EXTREMITIES: No edema. No cyanosis. No clubbing. NEUROLOGIC: The patient is awake, alert, and oriented x3 with no focal deficits. LABORATORY DATA: CBC, white count 8.5, hemoglobin 12.2, hematocrit 36.1, and platelet count of 277,000. BMP, sodium 133, potassium 3.6, chloride 97, bicarbonate 20, BUN 16, creatinine 0.6, and blood glucose is 113. Troponin is elevated at 0.085. RADIOLOGIC FINDINGS: Chest CT, impression, large left lower lobe mass, suspect primary pulmonary malignancy. Extensive disseminated osteolytic lesions consistent with osseous metastasis. Largest of these is in the left posterior iliac bone, which is essentially completely destroyed. Multiple lung nodules presumably also secondary to pulmonary metastasis. Right paratracheal lymphadenopathy. Multiple small thyroid nodules, nonspecific. Trace bilateral pleural fluid. Evidence of prior spinal fusion and decompression. Chest x-ray, impression, increasing left perihilar and basilar opacity. This may represent an enlarging mass. As per discussion with referring physician, the patient has a history of lung carcinoma. New peripheral opacity in the right mid lung. This may represent area of infiltrate versus neoplasm. ASSESSMENT: 1. Lung carcinoma, status post chemotherapy and radiation therapy. 2. Chronic back pain. 3. Nausea and vomiting. 4. Diabetes. 5. Hypertension. 6. Hepatitis C. PLAN: We will follow up with recommendations from Cardiology and Oncology. We will monitor lytes and correct as needed. We will monitor intake and output. Pain management as needed. Continue current medications. Monitor vitals. We will monitor the patient's overall response to treatment. Andreas Camejo M.D. Nanda Willis DR: Denise JOB#: [id number] CC: JOLIE
[2016-12-31 00:36] VITALS: BP 96/60
[2016-12-31 00:40] VITALS: BP 92/60
[2016-12-31 04:01] VITALS: BP 101/64
[2016-12-31] MEDS: NovoLOG Insulin Flexpen SUBQ SCH ×2 (06:26→11:30)
[2016-12-31 08:00] VITALS: BP 95/59
--- NOTE | 2016-12-31 08:27 | General Progress Note ---
Assessment/Plan Assessment/Plan (1) Lung Cancer with mets to bone (2) Intractable pain (3) H/o spinal surgery' Pt will be continued on Dilaudid and Percocet. D/w Dr. Jacques and he concurred. Subjective Date patient seen: Dec 31, 2016 Time patient seen: 07:15 - am Allergies: Coded Allergies: No Known Allergies (Unverified , 10/20/15) Subjective REVIEW OF SYSTEMS: Denies rash, fever, chills, sweating, dizziness, drowsiness, blurred vision, sore throat, or change in weight. No nausea, vomiting, diarrhea, or blood in the stool or urine. No bowel or bladder incontinence. No dysuria. She is complaining of generalized body pain. SUBJECTIVE: Pt reports that her pain is at a moderate level and is tolerated on the Percocet and Dilaudid. No new complaints. Objective Last 24 Hour Vital Signs Date Time Temp Pulse Resp B/P (MAP) Pulse Ox O2 Delivery O2 Flow Rate FiO2 12/31/16 04:01 97.7 85 20 101/64 100 Room Air 12/31/16 04:00 81 12/31/16 00:40 98.4 86 20 92/60 100 Room Air 12/31/16 00:00 86 12/31/16 00:00 98.4 86 20 82/53 100 Room Air 12/30/16 20:50 95 105/66 12/30/16 20:00 98.1 91 18 99/63 100 Room Air 12/30/16 20:00 107 12/30/16 16:00 100 12/30/16 15:57 97.0 95 18 100/69 97 Room Air 12/30/16 12:00 95 12/30/16 11:59 97.5 80 19 103/69 98 Room Air 12/30/16 08:37 97.7 80 18 91/59 96 Room Air Laboratory Tests 12/30/16 21:10: Troponin I 0.044 Height (Feet): 5 Height (Inches): 4.00 Weight (Pounds): 103 Objective PHYSICAL EXAMINATION: GENERAL: Alert, awake, and oriented x3. HEENT: PERRLA. NECK: Range of motion is decreased due to the patient's pain and condition. No tenderness to paracervical muscles. No adenopathy. LUNGS: Decreased breath sounds bilaterally. HEART: Regular. ABDOMEN: Tenderness to palpation. EXTREMITIES: No cyanosis. No clubbing. No edema. NEURO: No changes. FIFI BUSTILLO Dec 31, 2016 08:27
[2016-12-31] MEDS: Aspirin Baby 81mg ORAL SCH (08:51)
[2016-12-31] MEDS: Metoprolol 25mg tab ORAL SCH (08:52)
[2016-12-31] MEDS ORDERED: Lisinopril 10mg tab ORAL SCH (09:00)
[2016-12-31] MEDS ORDERED: Spironolactone 25mg tab ORAL SCH (09:00)
--- NOTE | 2016-12-31 09:30 | History and Physical Report ---
DATE OF ADMISSION: 12/28/2016 HISTORY OF PRESENT ILLNESS: This is a 66-year-old white female, who came to the emergency room for severe recurrent chest pain and palpitation. The patient denies any fever or chills. The patient had Cardiology evaluation and ruled out of RI. She is clinically improved. her vital signs. PAST MEDICAL HISTORY: Hypertension and chronic pain. ALLERGIES: NKA. MEDICATIONS: See the list. PHYSICAL EXAMINATION: GENERAL: The patient is currently awake, alert, and oriented x3. VITAL SIGNS: Blood pressure 130/70, pulse 60, and respirations 18. No fever. SKIN: Good skin turgor. HEENT: NAD. CHEST: Bilaterally clear. CARDIOVASCULAR: Regular rhythm. No gallop. No murmur. ABDOMEN: Soft. Positive bowel sounds. EXTREMITIES: No CCE. NEUROLOGICAL: No focal deficit. DIAGNOSTIC DATA: Cardiac workup is negative. ASSESSMENT: 1. Atypical chest pain. 2. Chronic pain. 3. Chronic obstructive pulmonary disease. 4. Hypertension. PLAN: Continue current treatment. Discharge plan. Discussed with Dr. Camejo and charge nurse. Daniel Zuniga M.D. DR: YUDY JOB#: [id number] CC:
--- NOTE | 2016-12-31 10:46 | Diagnostic Imaging Report ---
APPROVED REPORT CPT Code: 93558 BILATERAL: Imaging reveals a patent deep venous system bilaterally. There is no evidence of thrombus within the femoral, popliteal or tibial segments. The greater saphenous veins are also within normal limits. Doppler indicates normal spontaneous flow within these segments.
[2016-12-31 12:01] VITALS: BP 104/54
--- NOTE | 2016-12-31 20:46 | General Progress Note ---
Assessment/Plan Assessment/Plan ASSESSMENT AND RECOMMENDATIONS: 1. Stage IV lung cancer, has received chemotherapy with radiation, currently undergoing treatment from Dr. Connor at [facility]. Continue with outpatient treatment. 2. Coagulopathy secondary to heparin drip. Continue to monitor. 3. Anemia secondary to chronic disease. Watch counts 4. Intractable pain secondary to malignancy. 5. History of spinal surgery, status post fusion. Subjective Constitutional: Reports: weakness Neurologic/Psychiatric: Reports: anxiety Allergies: Coded Allergies: No Known Allergies (Unverified , 10/20/15) All Systems: reviewed and negative except above Subjective no new complaints Objective Last 24 Hour Vital Signs Date Time Temp Pulse Resp B/P (MAP) Pulse Ox O2 Delivery O2 Flow Rate FiO2 12/31/16 12:01 97.9 71 18 104/54 99 Room Air 12/31/16 08:52 95/59 12/31/16 08:52 78 95/59 12/31/16 08:00 97.5 78 18 95/59 97 Room Air 12/31/16 08:00 85 12/31/16 04:01 97.7 85 20 101/64 100 Room Air 12/31/16 04:00 81 12/31/16 00:40 98.4 86 20 92/60 100 Room Air 12/31/16 00:00 86 12/31/16 00:00 98.4 86 20 82/53 100 Room Air 12/30/16 20:50 95 105/66 Laboratory Tests 12/30/16 21:10: Troponin I 0.044 Height (Feet): 5 Height (Inches): 4.00 Weight (Pounds): 103 General Appearance: no apparent distress Respiratory/Chest: decreased breath sounds Abdomen: non tender, soft Edwin Lechuga Dec 31, 2016 20:46
--- NOTE | 2017-01-01 09:55 | Discharge Summary ---
Discharge Summary Hospital Course Date of Admission Dec 28, 2016 at 14:04 Date of Discharge Dec 31, 2016 at 13:15 Admitting Diagnosis nstemi HPI Court Oropeza is a 66 year old female who was admitted on Dec 28, 2016 at 14:04 for Nstemi Discharge Discharge Disposition Patient was discharged to home Discharge Diagnoses: Venecia Curry NP Jan 01, 2017 09:55
--- NOTE | 2017-01-01 16:30 | Discharge Summary 2 SIG ---
DATE OF ADMISSION: 12/28/2016 DATE OF DISCHARGE: 12/31/2016 CONSULTANTS: 1. Edwin Lechuga M.D. 2. John Jacques M.D. 3. Daniel Zuniga M.D. 4. Franky Woodard M.D. BRIEF HOSPITAL COURSE: The patient is a 66-year-old female with medical history significant for lung cancer on chemotherapy and radiation treatment, history of hypertension, and chronic generalized pain, presented to emergency room with nausea, vomiting, and epigastric pain with episode of nonbilious and nonbloody vomiting as well as diarrhea. The patient had been compliant with her chemotherapy. She presented to ED complaining of abdominal pain located to the epigastric area, which is nonradiating and burning in nature. There was no relieving or exacerbating factor. She had three episodes of nonbilious vomiting and two episodes of watery nonbloody diarrhea. On evaluation at ED, she was not tachycardic. Troponin was 0.139. Chest CT showed large left lower lobe mass suspect primary pulmonary malignancy. There was extensive disseminated osteolytic lesions consistent with osseous metastasis, largest is in the left posterior iliac bone. There were multiple lung nodules presumably also secondary to pulmonary metastasis and right paratracheal lymphadenopathy. Chest x-ray done showed increased left perihilar and basal opacity, may represent enlarging mass. There was a new peripheral opacity seen in the right mid lung. She was given aspirin and was started on heparin drip. EKG showed sinus rhythm with nonspecific ST-T wave abnormality. She was followed by Cardiology and was continued on aspirin, Toprol, and Lipitor. Echocardiogram done showed ejection fraction of 40%. Left ventricular distal half appeared akinetic, proximal half was hyperkinetic. Lisinopril and Aldactone was added. She underwent a myocardial perfusion scan, which was negative. She has history of stage IV lung CA and has received chemotherapy with radiation from Dr. Connor at [facility], advised to continue with outpatient treatment. She was given pain management consisting of Dilaudid and Percocet. She was eventually discharged home. FINAL DIAGNOSES: 1. Stage IV lung cancer with chemotherapy and radiation. 2. Troponin leak. 3. Cardiomyopathy with ejection fraction of 40%. 4. Chronic back pain. 5. Diabetes mellitus. 6. Gastroenteritis. 7. Intractable pain. DISPOSITION: The patient was discharged home. Advised to follow up with PMD and Oncology to continue with treatment. DISCHARGE MEDICATIONS: Refer to medication list. Andreas Camejo M.D. I have been assigned to dictate discharge summary on this account and I was not involved in the patient's management. Venecia Curry N.P. DR: Freda JOB#: [id number] CC: JOLIE
== END 2016-12-31 13:15 | disposition home or self-care (01) | DRG 861 ==
LOC: EMR 10:40 → 2E 14:04 → EDBEDREQ 14:52 → 2E 16:38
DX: G89.3 Neoplasm related pain (acute) (chronic) (principal); C79.51 Secondary malignant neoplasm of bone; I42.9 Cardiomyopathy, unspecified; C34.90 Malignant neoplasm of unspecified part of unspecified bronchus or lung; I10 Essential (primary) hypertension; D63.8 Anemia in other chronic diseases classified elsewhere; J44.9 Chronic obstructive pulmonary disease, unspecified; G89.29 Other chronic pain; M54.9 Dorsalgia, unspecified; Z92.3 Personal history of irradiation; Z79.899 Other long term (current) drug therapy; E11.9 Type 2 diabetes mellitus without complications; K52.9 Noninfective gastroenteritis and colitis, unspecified; Z98.1 Arthrodesis status; Z79.84 Long term (current) use of oral hypoglycemic drugs
CPT/HCPCS: 36415; 71010; 71250; 74176; 78452; 80053; 81003; 82962; 83690; 83880; 84484; 85025; 85610; 85730; 93005; 93017; 93306; 93970; J1815; J2405; J2785

== ENCOUNTER 2017-01-11 14:41 | Emergency (ER) | payer OTHER ==
[~2017-01-11] VITALS: Ht 162.6 cm; Wt 48.1 kg
[2017-01-11 15:02] VITALS: BP 169/90
[2017-01-11] MEDS ORDERED: ASPIR 8181 MG ORAL (15:11)
[2017-01-11] MEDS ORDERED: OXYCODONE HCL5 M2 ORAL (15:11)
[2017-01-11] MEDS ORDERED: Morphine Sulfate 4mg/ml Inj IVP ONE ×2 (15:15→17:30)
[2017-01-11 16:05] LABS: BASOPHILS % (AUTO) 0.8 % (0.0-2.0); EOSINOPHILS % (AUTO) 0.8 % (0.0-3.0); HEMATOCRIT 36.2 % (37.0-47.0); HEMOGLOBIN 11.3 G/DL (12.0-16.0); LYMPHOCYTES % (AUTO) 17.1 % (20.0-45.0); MEAN CORPUSCULAR VOLUME 88 FL (80-99); MONOCYTES % (AUTO) 2.1 % (1.0-10.0); NEUTROPHILS % (AUTO) 79.2 % (45.0-75.0); PLATELET COUNT 281 K/UL (150-450); RED CELL DISTRIBUTION WIDTH 16.2 % (11.6-14.8); WHITE BLOOD COUNT 9.7 K/UL (4.8-10.8)
[2017-01-11 16:10] LABS: APPEARANCE,URINE CLEAR; BILIRUBIN, URINE NEGATIVE (NEGATIVE); COLOR,URINE PALE YELLOW; GLUCOSE, URINE (UA) NEGATIVE (NEGATIVE); KETONES,URINE NEGATIVE (NEGATIVE); LEUKOCYTE ESTERASE ,URINE 1+ (NEGATIVE); NITRITE,URINE NEGATIVE (NEGATIVE); PH,URINE 7 (4.5-8.0); PROTEIN,URINE NEGATIVE (NEGATIVE); UROBILINOGEN,URINE NORMAL MG/DL (0.0-1.0)
[2017-01-11 16:16] LABS: ALANINE AMINOTRANSFERASE 27 U/L (12-78); ALBUMIN 3.4 G/DL (3.4-5.0); ALBUMIN/GLOBULIN RATIO 0.7 (1.0-2.7); ALKALINE PHOSPHATASE 172 U/L (46-116); ANION GAP 12 mmol/L (5-15); ASPARTATE AMINO TRANSFERASE 102 U/L (15-37); BILIRUBIN,TOTAL 0.6 MG/DL (0.2-1.0); BLOOD UREA NITROGEN 15 mg/dL (7-18); CALCIUM 9.9 MG/DL (8.5-10.1); CARBON DIOXIDE 24 MMOL/L (21-32); CHLORIDE 99 MMOL/L (98-107); CREATININE 0.5 MG/DL (0.55-1.30); POTASSIUM 4.4 MMOL/L (3.5-5.1); SODIUM 135 MMOL/L (136-145)
--- NOTE | 2017-01-11 16:41 | Emergency Room Report ---
History of Present Illness General Chief Complaint: Abdominal Pain Source: Patient Present Illness HPI 66-year-old female presents ED complaining of abdominal pain with nausea and vomiting which started today. States it started after eating food. Struck pain as mid abdomen, sharp, 8/10, nonradiating. Denies fevers or chills. Denies chest pain. Patient states she has history of lung cancer. States she was admitted here recently but does not know the diagnosis. No other aggravating relieving factors. Denies any other associated symptoms Allergies: Coded Allergies: No Known Allergies (Unverified , 10/20/15) Patient History Past Medical History: HTN, other - lung cancer Past Surgical History: none Pertinent Family History: none Social History: Denies: smoking, alcohol use, drug use Now: No Immunizations: UTD Reviewed Nursing Documentation: PMH: Agreed, PSxH: Agreed Nursing Documentation-PMH Hx Cardiac Problems: No - Hep C Hx Hypertension: Yes Hx Cancer: Yes - Lung Hx Gastrointestinal Problems: No Hx Neurological Problems: Yes - cord compression Review of Systems All Other Systems: negative except mentioned in HPI Physical Exam Vital Signs Date Time Temp Pulse Resp B/P (MAP) Pulse Ox O2 Delivery O2 Flow Rate FiO2 01/11/17 14:52 98.2 86 20 177/98 99 01/11/17 15:02 Room Air Sp02 EP Interpretation: reviewed, normal General Appearance: no apparent distress, alert, GCS 15, non-toxic Head: normocephalic, atraumatic Eyes: bilateral eye normal inspection, bilateral eye PERRL ENT: hearing grossly normal, normal pharynx, no angioedema, normal voice Neck: full range of motion, supple/symm/no masses Respiratory: chest non-tender, lungs clear, normal breath sounds, speaking full sentences Cardiovascular #1: regular rate, rhythm, no edema Cardiovascular #2: 2+ carotid (R), 2+ carotid (L), 2+ radial (R), 2+ radial (L) , 2+ dorsalis pedis (R), 2+ dorsalis pedis (L) Gastrointestinal: normal bowel sounds, soft, non-distended, no guarding, no rebound, tenderness Rectal: deferred Genitourinary: normal inspection, no CVA tenderness Musculoskeletal: back normal, gait/station normal, normal range of motion, non- tender Neurologic: alert, oriented x3, responsive, motor strength/tone normal, sensory intact, speech normal Psychiatric: judgement/insight normal, memory normal, mood/affect normal, no suicidal/homicidal ideation Reflexes: 3+ bicep (R), 3+ bicep (L), 3+ tricep (R), 3+ tricep (L), 3+ knee (R) , 3+ knee (L) Skin: normal color, no rash, warm/dry, well hydrated Lymphatic: no adenopathy Medical Decision Making Diagnostic Impression: Primary Impression: Abdominal pain Qualified Codes: R10.9 - Unspecified abdominal pain Additional Impression: Metastatic adenocarcinoma ER Course Hospital Course 66-year-old female presents ED complaining of abdominal pain and vomiting Differential diagnoses include: BPH, cystitis, pyelonephritis, kidney stone Clinical course Patient placed on stretcher. environmental monitoring specialist. After initial history and physical I ordered labs, IV fluids, UA, pain medication and CT scan Labs - no leukocytosis, Hb/Hct stable, electrolytes ok CT abdomen and pelvis - L lower lung mass and intraosseus mets. no SBO Patient continues to have pain and vomiting. Not tolerating by mouth intake. I recommend admission for IV hydration and pain control Because of insurance patient is to be transferred. Patient does not wish to be transferred and wants to leave AGAINST MEDICAL ADVICE Understands the risks of leaving. Patient has competency to make her own decisions. Signed AMA form. I feel this is a highly complex case requiring extensive working including EKG/ Rhythm strip, Xray/CT/US, Blood/urine lab work, repeat exams while in ED, and administration of strong opiates/narcotics for pain control, admission to hospital or close patient follow up. Diagnosis - abdominal pain, metastatic adenocarcinoma patient left AMA Labs Test 01/11/17 15:25 01/11/17 16:00 White Blood Count 9.7 K/UL (4.8-10.8) Red Blood Count 4.10 M/UL (4.20-5.40) Hemoglobin 11.3 G/DL (12.0-16.0) Hematocrit 36.2 % (37.0-47.0) Mean Corpuscular Volume 88 FL (80-99) Mean Corpuscular Hemoglobin 27.5 PG (27.0-31.0) Mean Corpuscular Hemoglobin Concent 31.2 G/DL (32.0-36.0) Red Cell Distribution Width 16.2 % (11.6-14.8) Platelet Count 281 K/UL (150-450) Mean Platelet Volume 9.0 FL (6.5-10.1) Neutrophils (%) (Auto) 79.2 % (45.0-75.0) Lymphocytes (%) (Auto) 17.1 % (20.0-45.0) Monocytes (%) (Auto) 2.1 % (1.0-10.0) Eosinophils (%) (Auto) 0.8 % (0.0-3.0) Basophils (%) (Auto) 0.8 % (0.0-2.0) Sodium Level 135 MMOL/L (136-145) Potassium Level 4.4 MMOL/L (3.5-5.1) Chloride Level 99 MMOL/L (98-107) Carbon Dioxide Level 24 MMOL/L (21-32) Anion Gap 12 mmol/L (5-15) Blood Urea Nitrogen 15 mg/dL (7-18) Creatinine 0.5 MG/DL (0.55-1.30) Estimat Glomerular Filtration Rate > 60 mL/min (>60) Glucose Level 127 MG/DL (74-106) Calcium Level 9.9 MG/DL (8.5-10.1) Total Bilirubin 0.6 MG/DL (0.2-1.0) Aspartate Amino Transf (AST/SGOT) 102 U/L (15-37) Alanine Aminotransferase (ALT/SGPT) 27 U/L (12-78) Alkaline Phosphatase 172 U/L (46-116) Troponin I 0.001 ng/mL (0.000-0.056) Total Protein 8.1 G/DL (6.4-8.2) Albumin 3.4 G/DL (3.4-5.0) Globulin 4.7 g/dL Albumin/Globulin Ratio 0.7 (1.0-2.7) Lipase 177 U/L (73-393) Urine Color Pale yellow Urine Appearance Clear Urine pH 7 (4.5-8.0) Urine Specific [place] 1.010 (1.005-1.035) Urine Protein Negative (NEGATIVE) Urine Glucose (UA) Negative (NEGATIVE) Urine Ketones Negative (NEGATIVE) Urine Occult Blood Negative (NEGATIVE) Urine Nitrite Negative (NEGATIVE) Urine Bilirubin Negative (NEGATIVE) Urine Urobilinogen Normal MG/DL (0.0-1.0) Urine Leukocyte Esterase 1+ (NEGATIVE) Urine RBC 0-2 /HPF (0 - 2) Urine WBC 2-4 /HPF (0 - 2) Urine Squamous Epithelial Cells Few /LPF (NONE/OCC) Urine Amorphous Sediment Few /LPF (NONE) Urine Bacteria Few /HPF (NONE) CT/MRI/US Diagnostic Results CT/MRI/US Diagnostic Results : Imaging Test Ordered: CT A/P Impression Cardiomegaly. Partially visualized mass lesion in the left lower hemithorax. Nodules in the right lung. Elevation left diaphragm. Mesenteric and retroperitoneal nodes. Diffuse osseous metastasis with the pathologic fractures involving ribs, spine and left iliac bone. Suspect intraspinal extension of disease Hardware in the spine. Unremarkable appendix. No colitis or bowel obstruction. Small amount of fluid in the pelvis. Fibroid uterus. Last Vital Signs Date Time Temp Pulse Resp B/P (MAP) Pulse Ox O2 Delivery O2 Flow Rate FiO2 01/11/17 15:02 97.8 83 22 169/90 99 Room Air Status: improved Disposition: AGAINST MEDICAL ADVICE Condition: Stable Referrals: [facility],REFERRING (PCP) AGATA SALAZAR M.D. Jan 11, 2017 16:41
[2017-01-11 17:05] VITALS: BP 165/76
[2017-01-11 19:15] VITALS: BP 139/67
[2017-01-11 19:56] VITALS: BP 139/67
--- NOTE | 2017-01-12 10:02 | Diagnostic Imaging Report ---
Indication: Abdominal pain. History of metastatic lung cancer Technique: Continuous helical transaxial imaging of the abdomen and pelvis was obtained from the lung bases to the pubic symphysis during intravenous contrast administration. Coronal 2-D reformats were also obtained. Study obtained in a Siemens sensation [address] Total Dose length Product (DLP): [address] Dose Index Volume (CTDIvol): .15, 8.36 mGy Comparison: 12/29/[address] chest abdomen pelvis. Findings: The left hemidiaphragm is elevated. There is a partially imaged mass at the left lung base contiguous with the left infrahilar region. This is better demonstrated on the prior study and probably accounts for postobstructive atelectasis and some volume loss. There are multiple osseous metastases throughout the spine and other regions. Partially visualization of fusion hardware demonstrated in the lower part of the thoracic spine noted once again. Involvement of both vertebral bodies and posterior elements noted at multiple levels. At T12 there is prominent involvement of the right pedicle and lamina with extradural extension into the canal. There is extensive destruction of the left iliac bone extending into the left hemisacrum. Right iliac lesion also demonstrated. Appendix is normal. No evidence of bowel obstruction or intra-abdominal abscess. Trace amount of free fluid within the pelvis. Uterine fibroids are noted. The gallbladder is mildly contracted. Impression: Similar findings compared to the previous examination with evidence of diffuse osseous metastasis involving the pelvis and spine. Probable intraspinal extension at T12. Spinal support hardware noted. Left basal atelectasis probably postobstructive due to presence of a large left lower lobe mass, only partially visualized on this study. [facility] has communicated the preliminary results to the Emergency Department. Their findings are largely concordant with this report. The CT scanner at [facility] is accredited by the [employer] and the scans are performed using dose optimization techniques as appropriate to a performed exam including Automatic Exposure control.
== END 2017-01-11 19:56 | disposition left against medical advice (07) ==
LOC: EMR 15:59
DX: C79.9 Secondary malignant neoplasm of unspecified site (principal); R10.9 Unspecified abdominal pain; C34.90 Malignant neoplasm of unspecified part of unspecified bronchus or lung; I10 Essential (primary) hypertension; B19.20 Unspecified viral hepatitis C without hepatic coma
CPT/HCPCS: 36415; 74177; 80053; 81003; 83690; 84484; 85025; 87081; 96361; 96374; 96375; 96376; 99284; J2270; J2405; Q9967

== ENCOUNTER 2017-01-27 14:55 | Emergency (ER) | payer OTHER ==
[~2017-01-27] VITALS: Ht 165.1 cm; Wt 56.7 kg
[~2017-01-27 14:55] MED LIST changes: +ASPIR 8181 MG ORAL; +OXYCODONE HCL5 M2 ORAL
[2017-01-27] MEDS ORDERED: Morphine Sulfate 4mg/ml Inj IVP ONE (15:15)
--- NOTE | 2017-01-27 15:15 | Emergency Room Report ---
History of Present Illness General Chief Complaint: Chest Pain Source: Patient, EMS Present Illness HPI 66-year-old female with pmhx of lung cancer with metastases, was on radiation, currently not on chemotherapy, hypertension, chronic generalized pain, p/w chest pain for 1 day. Chest pain started while she was pushing herself up to get out of a bed lopez. Localized to left chest and left ribs, no radiation to back or other areas, sharp in nature, sudden in onset, multiple episodes. Worse with movement, also presenting with shortness of breath. Denies palpitations, diaphoresis, n/v. Denies having a clot in her legs or lungs. Denies fever, chills, cough, abd pain. Denies trauma. Unknown last stress test or last cardiac catheterization Denies smoking, no family history of cardiac disease at a young age. Allergies: Coded Allergies: No Known Allergies (Unverified , 10/20/15) Patient History Past Medical History: see triage record Past Surgical History: none Pertinent Family History: none Last Menstrual Period: n/a Reviewed Nursing Documentation: PMH: Agreed, PSxH: Agreed Nursing Documentation-PMH Past Medical History: No History, Except For Hx Hypertension: Yes Hx Cancer: Yes - leukemia Hx Gastrointestinal Problems: No Hx Neurological Problems: Yes - cord compression Review of Systems All Other Systems: negative except mentioned in HPI Physical Exam Vital Signs Date Time Temp Pulse Resp B/P (MAP) Pulse Ox O2 Delivery O2 Flow Rate FiO2 01/27/17 14:50 98.4 104 20 124/84 98 Sp02 EP Interpretation: reviewed, normal General Appearance: alert, GCS 15, non-toxic, mild distress Head: normocephalic, atraumatic Eyes: bilateral eye normal inspection, bilateral eye PERRL, bilateral eye EOMI ENT: normal ENT inspection, normal pharynx, normal voice, moist mucus membranes Neck: normal inspection, full range of motion, supple Respiratory: normal inspection, lungs clear, normal breath sounds, no respiratory distress, no retraction, no wheezing, speaking full sentences, chest symmetrical Cardiovascular #1: normal inspection, regular rate, rhythm, no edema, normal capillary refill, other - L sided rib chest wall tenderness Cardiovascular #2: 2+ radial (R), 2+ radial (L) Gastrointestinal: normal inspection, non tender, soft, non-distended, no guarding Musculoskeletal: normal inspection, back normal, normal range of motion, non- tender Neurologic: normal inspection, alert, oriented x3, responsive, motor strength/ tone normal, sensory intact, normal gait, speech normal Psychiatric: normal inspection, judgement/insight normal, memory normal Skin: normal inspection, normal color, no rash, warm/dry, well hydrated, normal turgor Medical Decision Making Diagnostic Impression: Primary Impression: Chest pain ER Course 66-year-old female with pmhx of hypertension and lung CA p/w CP DDX: due to physical exam being tender in L ribs, likely musculoskeletal pain ACS vs. CHF vs. pneumonia vs. gastritis/GERD vs. pneumothorax PE on differential however at this time there are other more likely diagnoses. Currently patient is not dyspneic, no tachycardia and no hypoxia Plan: IV access, obtain labs including troponin, EKG, CXR ASA already given by EMS, pain control Anticipate admission ER course: Patient was treated with ASA. Patient has remained on a monitor, HD stable, chest pain improved. chart review shows negative stress test performed 12/28 troponin is negative here patient states she feels much better but has had intermittent dyspnea x 2 days CTA chest performed, negative Disposition: DC home with cardiology fu Please note that this Emergency Department Report was dictated using [employer] and parole officer technology software, occasionally this can lead to erroneous entry secondary to interpretation by the dictation equipment. EKG Diagnostic Results EP Interpretation: Yes Rate: normal Rhythm: NSR ST Segments: T-wave flattening in aVL ASA given to patient: Yes Rhythm Strip EP Interpretation: Yes Rate: 90 Rhythm: NSR, no PVCs, no ectopy Chest X-ray CXR: Ordered: Yes 1 view Indication: Chest pain EP interpretation: Yes Interpretation: No consolidation, no effusion, no PTX, no acute cardiopulmonary disease Impression: No acute disease Electronically signed by Maria Eugenia Ogden MD Laboratory Tests Test 01/27/17 15:20 01/27/17 16:13 White Blood Count 10.1 K/UL (4.8-10.8) Red Blood Count 3.61 M/UL (4.20-5.40) L Hemoglobin 9.8 G/DL (12.0-16.0) L Hematocrit 31.2 % (37.0-47.0) L Mean Corpuscular Volume 86 FL (80-99) Mean Corpuscular Hemoglobin 27.1 PG (27.0-31.0) Mean Corpuscular Hemoglobin Concent 31.3 G/DL (32.0-36.0) L Red Cell Distribution Width 14.1 % (11.6-14.8) Platelet Count 267 K/UL (150-450) Mean Platelet Volume 7.7 FL (6.5-10.1) Neutrophils (%) (Auto) 73.9 % (45.0-75.0) Lymphocytes (%) (Auto) 16.5 % (20.0-45.0) L Monocytes (%) (Auto) 6.4 % (1.0-10.0) Eosinophils (%) (Auto) 2.4 % (0.0-3.0) Basophils (%) (Auto) 1.0 % (0.0-2.0) Prothrombin Time 10.8 SEC (9.30-11.50) Prothrombin Time INR 1.0 (0.9-1.1) PTT 26 SEC (23-33) Sodium Level 136 MMOL/L (136-145) Potassium Level 4.1 MMOL/L (3.5-5.1) Chloride Level 100 MMOL/L (98-107) Carbon Dioxide Level 24 MMOL/L (21-32) Anion Gap 12 mmol/L (5-15) Blood Urea Nitrogen 19 mg/dL (7-18) H Creatinine 0.5 MG/DL (0.55-1.30) L Estimate Glomerular Filtration Rate > 60 mL/min (>60) Glucose Level 116 MG/DL (74-106) H Calcium Level 9.8 MG/DL (8.5-10.1) Total Bilirubin 0.6 MG/DL (0.2-1.0) Aspartate Amino Transferase (AST) 93 U/L (15-37) H Alanine Aminotransferase (ALT) 25 U/L (12-78) Alkaline Phosphatase 189 U/L (46-116) H Troponin I 0.001 ng/mL (0.000-0.056) Pro-B-Type Natriuretic Peptide 758 pg/mL (0-125) H Total Protein 7.9 G/DL (6.4-8.2) Albumin 3.3 G/DL (3.4-5.0) L Globulin 4.6 g/dL Albumin/Globulin Ratio 0.7 (1.0-2.7) L Lipase 188 U/L (73-393) Urine Color Pale yellow Urine Appearance Clear Urine pH 6.5 (4.5-8.0) Urine Specific [place] 1.015 (1.005-1.035) Urine Protein Negative (NEGATIVE) Urine Glucose (UA) Negative (NEGATIVE) Urine Ketones Negative (NEGATIVE) Urine Occult Blood Negative (NEGATIVE) Urine Nitrite Negative (NEGATIVE) Urine Bilirubin Negative (NEGATIVE) Urine Urobilinogen Normal MG/DL (0.0-1.0) Urine Leukocyte Esterase 2+ (NEGATIVE) H Urine RBC Pending Urine WBC Pending Urine Squamous Epithelial Cells Pending Urine Bacteria Pending CT/MRI/US Diagnostic Results CT/MRI/US Diagnostic Results : Imaging Test Ordered: CTA chest Impression CTA CHEST: Comparison 12/29/2016 No PE or aortic dissection. Enlarged left lower lobe mass. Worsened pulmonary and osseous metastasis. Small left pleural effusion. Small pericardial effusion. per STAT [facility]Ad Last Vital Signs Date Time Temp Pulse Resp B/P (MAP) Pulse Ox O2 Delivery O2 Flow Rate FiO2 01/27/17 14:50 98.4 104 20 124/84 98 Maria Eugenia Ogden M.D. Jan 27, 2017 15:15
[2017-01-27] MEDS ORDERED: MAVYRET 100-401 EACH PO (15:25)
[2017-01-27 15:30] VITALS: BP 133/82
[2017-01-27 15:43] LABS: ANION GAP 12 mmol/L (5-15); CALCIUM 9.8 MG/DL (8.5-10.1); CARBON DIOXIDE 24 MMOL/L (21-32); CHLORIDE 100 MMOL/L (98-107); CREATININE 0.5 MG/DL (0.55-1.30); GLOMERULAR FILTRATION RATE > 60 mL/min (>60); POTASSIUM 4.1 MMOL/L (3.5-5.1); SODIUM 136 MMOL/L (136-145)
[2017-01-27 15:45] LABS: PROTHROMBIN TIME 10.8 SEC (9.30-11.50)
[2017-01-27 15:50] VITALS: BP 136/82
[2017-01-27 15:50] LABS: EOSINOPHILS % (AUTO) 2.4 % (0.0-3.0); LYMPHOCYTES % (AUTO) 16.5 % (20.0-45.0); MEAN CORPUSCULAR HEMOGLOBIN 27.1 PG (27.0-31.0); MEAN CORPUSCULAR HGB CONC 31.3 G/DL (32.0-36.0); MEAN CORPUSCULAR VOLUME 86 FL (80-99); MEAN PLATELET VOLUME 7.7 FL (6.5-10.1); MONOCYTES % (AUTO) 6.4 % (1.0-10.0); NEUTROPHILS % (AUTO) 73.9 % (45.0-75.0); PLATELET COUNT 267 K/UL (150-450); RED BLOOD COUNT 3.61 M/UL (4.20-5.40); RED CELL DISTRIBUTION WIDTH 14.1 % (11.6-14.8); WHITE BLOOD COUNT 10.1 K/UL (4.8-10.8)
[2017-01-27 15:55] LABS: ALANINE AMINOTRANSFERASE 25 U/L (12-78); ALBUMIN/GLOBULIN RATIO 0.7 (1.0-2.7); ASPARTATE AMINO TRANSFERASE 93 U/L (15-37); TOTAL PROTEIN 7.9 G/DL (6.4-8.2)
[2017-01-27 16:19] LABS: APPEARANCE,URINE CLEAR; KETONES,URINE NEGATIVE (NEGATIVE); LEUKOCYTE ESTERASE ,URINE 2+ (NEGATIVE); NITRITE,URINE NEGATIVE (NEGATIVE); PH,URINE 6.5 (4.5-8.0); PROTEIN,URINE NEGATIVE (NEGATIVE); UROBILINOGEN,URINE NORMAL MG/DL (0.0-1.0)
[2017-01-27 16:30] VITALS: BP 146/88
[2017-01-27 16:35] LABS: BACTERIA,URINE FEW /HPF; RBC,URINE 0-2 /HPF (0 - 2); SQUAMOUS EPITHELIAL CELL,UR OCCASIONAL /LPF (NONE/OCC); WBC,URINE 0-2 /HPF (0 - 2)
--- NOTE | 2017-01-27 16:42 | Diagnostic Imaging Report ---
Indication: Chest pain Technique: One view of the chest Comparison: 12/28/2016 Findings: Again demonstrated is a left basilar opacity, previously demonstrated to represent a mass, is unchanged. Right peripheral opacity, also previously demonstrated to represent rib tumor, appears slightly increased. No new infiltrates. The right pleural space is clear. The left costophrenic angle is slightly obscured, appearance unchanged. Spinal fusion rods are again demonstrated. There is a subcentimeter nodule in the right lung apex which was not evident previously Impression: Bilateral parenchymal opacities, previously demonstrated to likely represent pulmonary and osseous neoplasm, again demonstrated. This appears stable on the left, slightly increased on the right. No definite new infiltrates Right apical nodule, not evident previously, presumably represents enlarging neoplastic deposit
[2017-01-27 17:00] VITALS: BP 128/85
[2017-01-27 18:54] VITALS: BP 128/85
--- NOTE | 2017-01-28 09:33 | Diagnostic Imaging Report ---
Indication: Chest pain, shortness of breath Technique: CT angiography performed utilizing thin section spiral CT and bolus contrast injection. Axial, coronal, and sagittal images were generated. Maximum intensity projections (MIPs) were obtained in the coronal and sagittal planes. Dose: Total Dose Length Product - DLP [address] Dose Index - CTDIvol(s) 12.62, 12.5 mGy. Automated exposure control was utilized for dose reduction. Comparison: 12/29/16 Findings: Compared to previous study, no pulmonary emboli are demonstrated. The aorta is normal in caliber. There is no evidence of aortic dissection. Calcified nodes are noted in the aortopulmonary window. Heart is normal in size. There is a mass in the left lower lobe as previously described. This is probably slightly larger than on the previous exam. It extends into the left hilum. Multiple pulmonary nodules are again noted, probably slightly increased in size. Multiple expanded ribs are demonstrated, consistent with metastatic disease. Rods are present in the spine with pedicle screws. There has been extensive laminectomy in the thoracic spine. Artifacts emanate from rods. The left pleural effusion. There is also small pericardial effusion. Impression: Large left lower lobe pulmonary mass, probably increased slightly in size from previous exam. Multiple pulmonary nodules, also possibly slightly increased in size. This is consistent with metastatic disease. Rib metastases. Left pleural effusion. Old granulomatous disease. No evidence of aortic dissection or pulmonary bullous. Small pericardial effusion.. The above report is concordant with preliminary reading by [facility] . The CT scanner at [facility] is accredited by the [employer] and the scans are performed using protocols designed to limit radiation exposure to as low as reasonably achievable to attain images of sufficient resolution adequate for diagnostic evaluation.
--- NOTE | 2017-02-06 17:58 | Cardiology Report ---
APPROVED REPORT EKG Measurement Heart [id number] Sinus rhythm with occasional premature ventricular complexes Otherwise normal ECG
== END 2017-01-27 18:54 | disposition home or self-care (01) ==
LOC: EDBD 14:55 → EMR 15:32
DX: R07.89 Other chest pain (principal); Z85.118 Personal history of other malignant neoplasm of bronchus and lung; Z92.3 Personal history of irradiation; Z85.6 Personal history of leukemia
CPT/HCPCS: 36415; 71010; 71275; 80053; 81003; 83690; 83880; 84484; 85025; 85610; 85730; 93005; 96374; 96375; 99284; J2270; J2405; Q9967

== ENCOUNTER 2017-02-03 15:10 | Inpatient (IN) | payer OTHER ==
[~2017-02-03] VITALS: Ht 162.6 cm; Wt 47.2 kg
[~2017-02-03 15:10] MED LIST changes: +MAVYRET 100-401 EACH PO
[2017-02-03 15:21] VITALS: BP 133/88
--- NOTE | 2017-02-03 15:44 | Emergency Room Report ---
History of Present Illness General Chief Complaint: Vomiting Source: Patient Present Illness HPI 66-year-old female, history of lung CA, had radiation but no chemotherapy, hep C on treatment, chronic back pain, presenting with hemoptysis. Patient states that she had some pinkish sputum for a couple days, however today had 2 episodes of plum colored sputum. Denies any fever chills or shortness of breath. Patient has had exacerbation of her chronic back pain for the last 2 weeks. Patient was recently seen in the emergency room about one week ago, had chest pain, headache CAT scan of her chest which was negative for a pulmonary embolism Patient is currently denying any fever chills or shortness of breath Allergies: Coded Allergies: No Known Allergies (Unverified , 10/20/15) Patient History Past Medical History: see triage record Past Surgical History: none Pertinent Family History: none Reviewed Nursing Documentation: PMH: Agreed, PSxH: Agreed Nursing Documentation-PMH Hx Hypertension: Yes Hx Cancer: Yes - leukemia lung Hx Gastrointestinal Problems: No Hx Neurological Problems: Yes - cord compression Review of Systems All Other Systems: negative except mentioned in HPI Physical Exam Vital Signs Date Time Temp Pulse Resp B/P (MAP) Pulse Ox O2 Delivery O2 Flow Rate FiO2 02/03/17 15:21 98.1 96 21 133/88 98 Room Air Sp02 EP Interpretation: reviewed, normal General Appearance: normal inspection, well appearing, no apparent distress, alert, GCS 15, non-toxic, other - speaking in complete sentences, no sob, calm and cooperative Head: normocephalic, atraumatic Eyes: bilateral eye normal inspection, bilateral eye PERRL, bilateral eye EOMI ENT: normal ENT inspection, normal pharynx, normal voice, moist mucus membranes Neck: normal inspection, full range of motion, supple Respiratory: normal inspection, lungs clear, normal breath sounds, no respiratory distress, no retraction, no wheezing, speaking full sentences, chest symmetrical Cardiovascular #1: normal inspection, regular rate, rhythm, normal capillary refill Cardiovascular #2: 2+ radial (R), 2+ radial (L) Gastrointestinal: normal inspection, non tender, soft, non-distended, no guarding Musculoskeletal: normal range of motion, other - L sided paraspinal lumbar tenderness no midline tenderness Neurologic: normal inspection, alert, oriented x3, responsive, motor strength/ tone normal, sensory intact, normal gait, speech normal Psychiatric: normal inspection, judgement/insight normal, memory normal Skin: normal inspection, normal color, no rash, warm/dry, well hydrated, normal turgor Medical Decision Making Diagnostic Impression: Primary Impression: Hemoptysis Additional Impressions: Chronic pain Lung cancer ER Course 66-year-old female, history of lung cancer, presenting with hemoptysis DDX: Hemoptysis possibly due to progression of lung cancer, versus pneumonia versus bronchitis Patient had a recent CAT scan done, which was negative for pulmonary embolism Patient also with chronic musculoskeletal back pain, no new trauma, no signs of cord compression Plan: Obtain labs, including coag, EKG, CXR ER course: Patient has been monitored during ED stay, HD stable Oxygen saturation has been normal had ~2 more episodes of hemoptysis in ED given meds for chronic back pain Disposition: Patient is to be admitted to telemetry D/W hospitalist Dr Cavazos who has accepted patient for admission. Pt admitted to his service this past december. Patient is assigned to Dr Zuniga per insurance however paged x 2 without answer. Please note that this Emergency Department Report was dictated using [employer] processing technician technology software, occasionally this can lead to erroneous entry secondary to interpretation by the dictation equipment. EKG Diagnostic Results EP Interpretation: Yes Rate: normal Rhythm: NSR ST Segments: No acute changes , PVCs ASA given to patient: No Rhythm Strip EP Interpretation: Yes Rate: 90 Rhythm: NSR, no PVCs, no ectopy Chest X-ray CXR: Ordered: Yes 1 view Indication: Cough EP interpretation: Yes Interpretation: No consolidation, no effusion, no PTX, no acute cardiopulmonary disease Impression: No acute disease Electronically signed by Maria Eugenia Ogden MD Laboratory Tests Test 02/03/17 15:35 02/03/17 16:05 White Blood Count 10.4 K/UL (4.8-10.8) Red Blood Count 3.71 M/UL (4.20-5.40) L Hemoglobin 10.1 G/DL (12.0-16.0) L Hematocrit 32.4 % (37.0-47.0) L Mean Corpuscular Volume 87 FL (80-99) Mean Corpuscular Hemoglobin 27.1 PG (27.0-31.0) Mean Corpuscular Hemoglobin Concent 31.1 G/DL (32.0-36.0) L Red Cell Distribution Width 14.1 % (11.6-14.8) Platelet Count 352 K/UL (150-450) Mean Platelet Volume 7.8 FL (6.5-10.1) Neutrophils (%) (Auto) 65.0 % (45.0-75.0) Lymphocytes (%) (Auto) 20.1 % (20.0-45.0) Monocytes (%) (Auto) 7.1 % (1.0-10.0) Eosinophils (%) (Auto) 6.5 % (0.0-3.0) H Basophils (%) (Auto) 1.4 % (0.0-2.0) Prothrombin Time 11.4 SEC (9.30-11.50) Prothrombin Time INR 1.1 (0.9-1.1) PTT 28 SEC (23-33) Sodium Level 135 MMOL/L (136-145) L Potassium Level 4.5 MMOL/L (3.5-5.1) Chloride Level 100 MMOL/L (98-107) Carbon Dioxide Level 24 MMOL/L (21-32) Anion Gap 11 mmol/L (5-15) Blood Urea Nitrogen 25 mg/dL (7-18) H Creatinine 0.6 MG/DL (0.55-1.30) Estimate Glomerular Filtration Rate > 60 mL/min (>60) Glucose Level 100 MG/DL (74-106) Calcium Level 9.8 MG/DL (8.5-10.1) Total Bilirubin 0.3 MG/DL (0.2-1.0) Aspartate Amino Transferase (AST) 100 U/L (15-37) H Alanine Aminotransferase (ALT) 35 U/L (12-78) Alkaline Phosphatase 215 U/L (46-116) H Troponin I 0.004 ng/mL (0.000-0.056) Pro-B-Type Natriuretic Peptide 132 pg/mL (0-125) H Total Protein 7.4 G/DL (6.4-8.2) Albumin 3.3 G/DL (3.4-5.0) L Globulin 4.1 g/dL Albumin/Globulin Ratio 0.8 (1.0-2.7) L Urine Color Pale yellow Urine Appearance Clear Urine pH 6 (4.5-8.0) Urine Specific [place] 1.010 (1.005-1.035) Urine Protein Negative (NEGATIVE) Urine Glucose (UA) Negative (NEGATIVE) Urine Ketones Negative (NEGATIVE) Urine Occult Blood Negative (NEGATIVE) Urine Nitrite Negative (NEGATIVE) Urine Bilirubin Negative (NEGATIVE) Urine Urobilinogen Normal MG/DL (0.0-1.0) Urine Leukocyte Esterase 1+ (NEGATIVE) H Urine RBC 0-2 /HPF (0 - 2) Urine WBC 0-2 /HPF (0 - 2) Urine Squamous Epithelial Cells Few /LPF (NONE/OCC) Urine Bacteria Few /HPF (NONE) Last Vital Signs Date Time Temp Pulse Resp B/P (MAP) Pulse Ox O2 Delivery O2 Flow Rate FiO2 02/03/17 15:21 98.1 96 21 133/88 98 Room Air Maria Eugenia Ogden M.D. Feb 03, 2017 15:44
[2017-02-03 15:51] LABS: BASOPHILS % (AUTO) 1.4 % (0.0-2.0); EOSINOPHILS % (AUTO) 6.5 % (0.0-3.0); LYMPHOCYTES % (AUTO) 20.1 % (20.0-45.0); MEAN CORPUSCULAR HEMOGLOBIN 27.1 PG (27.0-31.0); MEAN CORPUSCULAR HGB CONC 31.1 G/DL (32.0-36.0); MEAN CORPUSCULAR VOLUME 87 FL (80-99); MEAN PLATELET VOLUME 7.8 FL (6.5-10.1); MONOCYTES % (AUTO) 7.1 % (1.0-10.0); PLATELET COUNT 352 K/UL (150-450); RED BLOOD COUNT 3.71 M/UL (4.20-5.40); RED CELL DISTRIBUTION WIDTH 14.1 % (11.6-14.8); WHITE BLOOD COUNT 10.4 K/UL (4.8-10.8)
[2017-02-03 16:00] LABS: ANION GAP 11 mmol/L (5-15); CALCIUM 9.8 MG/DL (8.5-10.1); CARBON DIOXIDE 24 MMOL/L (21-32); CHLORIDE 100 MMOL/L (98-107); CREATININE 0.6 MG/DL (0.55-1.30); GLOMERULAR FILTRATION RATE > 60 mL/min (>60); POTASSIUM 4.5 MMOL/L (3.5-5.1); SODIUM 135 MMOL/L (136-145)
[2017-02-03] MEDS ORDERED: Morphine Sulfate 2mg/ml Inj IVP ONE (16:00)
[2017-02-03 16:07] LABS: INR 1.1 (0.9-1.1); PROTHROMBIN TIME 11.4 SEC (9.30-11.50)
[2017-02-03 16:13] LABS: ALANINE AMINOTRANSFERASE 35 U/L (12-78); ALBUMIN/GLOBULIN RATIO 0.8 (1.0-2.7); ASPARTATE AMINO TRANSFERASE 100 U/L (15-37); TOTAL PROTEIN 7.4 G/DL (6.4-8.2)
[2017-02-03 16:32] LABS: APPEARANCE,URINE CLEAR; KETONES,URINE NEGATIVE (NEGATIVE); LEUKOCYTE ESTERASE ,URINE 1+ (NEGATIVE); NITRITE,URINE NEGATIVE (NEGATIVE); PH,URINE 6 (4.5-8.0); PROTEIN,URINE NEGATIVE (NEGATIVE); UROBILINOGEN,URINE NORMAL MG/DL (0.0-1.0)
[2017-02-03 16:39] LABS: BACTERIA,URINE FEW /HPF; RBC,URINE 0-2 /HPF (0 - 2); SQUAMOUS EPITHELIAL CELL,UR FEW /LPF (NONE/OCC); WBC,URINE 0-2 /HPF (0 - 2)
--- NOTE | 2017-02-03 16:47 | Diagnostic Imaging Report ---
Indication: COUGH Technique: One view of the chest Comparison: 01/27/2017 Findings: Again demonstrated is left basilar lung mass with some peripheral atelectasis, appearing unchanged from the prior exam. There is increased opacity in the right midlung periphery, consistent with rib lesion described on prior CT scan. There is also a pathological fracture of the right seventh rib. A nodule is seen in the right lung apex, appears slightly larger than on the prior study. Left upper lobe subcentimeter nodule is unchanged No new infiltrates. Slight blunting of left costophrenic angle could indicate a small amount of pleural fluid. Heart size is normal. Left hemidiaphragm is elevated. Surgical thoracic spine hardware is again demonstrated Impression: Left lung mass, right rib mass,, left upper lobe lung nodule consistent with previously demonstrated neoplasm, unchanged. Slightly enlarged right apical lung nodule, consistent with an enlarging metastasis No definite acute infiltrates Possible small left pleural effusion. Note that a small pleural effusion is also described on and 01/27/[address]
[2017-02-03 17:00] VITALS: BP 102/73
[2017-02-03] MEDS ORDERED: Norco 5mg/325mg tab ORAL ONE (18:00)
[2017-02-03 19:46] VITALS: BP 102/73
[2017-02-03 20:00] VITALS: BP 108/75
[2017-02-03] MEDS: Norco 10mg/325mg tab ORAL PRN (22:15)
[2017-02-03] MEDS: Zolpidem 5mg tab ORAL PRN (23:27)
[2017-02-04] VITALS: BP 112/70
[2017-02-04 04:00] VITALS: BP 113/78
[2017-02-04] MEDS: Norco 10mg/325mg tab ORAL PRN (04:43)
[2017-02-04 08:00] VITALS: BP 104/68
[2017-02-04] MEDS: Aspirin EC 81mg tab ORAL SCH (08:20)
[2017-02-04] MEDS ORDERED: Norco 10mg/325mg tab ORAL PRN (09:30)
[2017-02-04] MEDS: Morphine Sulfate 2mg/ml Inj IVP PRN ×4 (09:55→22:17)
[2017-02-04 10:55] LABS: BASOPHILS % (AUTO) 1.5 % (0.0-2.0); EOSINOPHILS % (AUTO) 6.8 % (0.0-3.0); LYMPHOCYTES % (AUTO) 18.7 % (20.0-45.0); MEAN CORPUSCULAR HEMOGLOBIN 27.2 PG (27.0-31.0); MEAN CORPUSCULAR VOLUME 88 FL (80-99); MEAN PLATELET VOLUME 7.7 FL (6.5-10.1); MONOCYTES % (AUTO) 7.3 % (1.0-10.0); NEUTROPHILS % (AUTO) 65.7 % (45.0-75.0); PLATELET COUNT 333 K/UL (150-450); RED BLOOD COUNT 3.59 M/UL (4.20-5.40); RED CELL DISTRIBUTION WIDTH 13.8 % (11.6-14.8); WHITE BLOOD COUNT 9.2 K/UL (4.8-10.8)
[2017-02-04 10:58] LABS: ANION GAP 6 mmol/L (5-15); CALCIUM 10.3 MG/DL (8.5-10.1); CARBON DIOXIDE 30 MMOL/L (21-32); CHLORIDE 103 MMOL/L (98-107); CREATININE 0.6 MG/DL (0.55-1.30); GLOMERULAR FILTRATION RATE > 60 mL/min (>60); POTASSIUM 4.6 MMOL/L (3.5-5.1); SODIUM 139 MMOL/L (136-145)
[2017-02-04 12:00] VITALS: BP 114/76
--- NOTE | 2017-02-04 12:21 | Wound Care Consultation ---
Wound Assessment Wound Assessment : Wound Number: 1 Wound Present on Admission: Yes New Wound: No Status Change of Wound: No Wound Location Body Site Modif: mid Wound Location Body Site: other - Sacrococcygeal Wound Type: scar - scattered Rody Test: Does not Rody Wound Thickness: Full Thickness Percent of Wound [place]rm[place]/Red: 100 Wound Drainage Amount: None Wound Drainage Odor: None/Absent Tissue Surrounding Wound: Intact Wound General Appearance: Asymptomatic Wound Comment #1 Scattered scar tissue on sacrococcygeal area pressure ulcer Recommendation -Keep clean and dry -Turn and reposition -Optimize nutrition -Assess and f/u accordingly for any changes ANGELA ADAM RN Feb 04, 2017 12:21
--- NOTE | 2017-02-04 15:35 | Infectious Diseases Prog Note ---
Assessment/Plan Problems: (1) Pneumonia Assessment & Plan: will start levaquin empiric coverage and send sputum culture (2) Lung cancer Assessment & Plan: recommend oncology eval, as per primary, she was followed by Dr Negro (3) Hemoptysis Assessment & Plan: due to the above. recommend pulmonary eval Subjective Allergies: Coded Allergies: No Known Allergies (Unverified , 10/20/15) Objective Vital Signs Last 24 Hour Vital Signs Date Time Temp Pulse Resp B/P (MAP) Pulse Ox O2 Delivery O2 Flow Rate FiO2 02/04/17 14:42 97.5 02/04/17 12:00 97.5 83 20 114/76 99 Room Air 02/04/17 11:50 95 02/04/17 08:00 97.2 94 21 104/68 99 Room Air 02/04/17 07:21 96 02/04/17 05:42 98.1 02/04/17 04:00 98.1 91 18 113/78 96 Room Air 02/04/17 04:00 92 02/04/17 00:00 86 02/04/17 00:00 97.9 93 17 112/70 Room Air 02/03/17 20:00 98.0 106 20 108/75 98 02/03/17 19:46 98.1 96 17 102/73 99 Room Air 02/03/17 19:45 98.1 96 17 119/70 99 Room Air 02/03/17 17:00 96 17 102/73 99 Room Air Height (Feet): 5 Height (Inches): 4.00 Weight (Pounds): 104 Laboratory Tests Test 02/03/17 15:35 02/03/17 16:05 02/04/17 10:20 White Blood Count 10.4 K/UL (4.8-10.8) 9.2 K/UL (4.8-10.8) Red Blood Count 3.71 M/UL (4.20-5.40) L 3.59 M/UL (4.20-5.40) L Hemoglobin 10.1 G/DL (12.0-16.0) L 9.7 G/DL (12.0-16.0) L Hematocrit 32.4 % (37.0-47.0) L 31.4 % (37.0-47.0) L Mean Corpuscular Volume 87 FL (80-99) 88 FL (80-99) Mean Corpuscular Hemoglobin 27.1 PG (27.0-31.0) 27.2 PG (27.0-31.0) Mean Corpuscular Hemoglobin Concent 31.1 G/DL (32.0-36.0) L 31.0 G/DL (32.0-36.0) L Red Cell Distribution Width 14.1 % (11.6-14.8) 13.8 % (11.6-14.8) Platelet Count 352 K/UL (150-450) 333 K/UL (150-450) Mean Platelet Volume 7.8 FL (6.5-10.1) 7.7 FL (6.5-10.1) Neutrophils (%) (Auto) 65.0 % (45.0-75.0) 65.7 % (45.0-75.0) Lymphocytes (%) (Auto) 20.1 % (20.0-45.0) 18.7 % (20.0-45.0) L Monocytes (%) (Auto) 7.1 % (1.0-10.0) 7.3 % (1.0-10.0) Eosinophils (%) (Auto) 6.5 % (0.0-3.0) H 6.8 % (0.0-3.0) H Basophils (%) (Auto) 1.4 % (0.0-2.0) 1.5 % (0.0-2.0) Prothrombin Time 11.4 SEC (9.30-11.50) Prothromb Time International Ratio 1.1 (0.9-1.1) Activated Partial Thromboplast Time 28 SEC (23-33) Sodium Level 135 MMOL/L (136-145) L 139 MMOL/L (136-145) Potassium Level 4.5 MMOL/L (3.5-5.1) 4.6 MMOL/L (3.5-5.1) Chloride Level 100 MMOL/L (98-107) 103 MMOL/L (98-107) Carbon Dioxide Level 24 MMOL/L (21-32) 30 MMOL/L (21-32) Anion Gap 11 mmol/L (5-15) 6 mmol/L (5-15) Blood Urea Nitrogen 25 mg/dL (7-18) H 23 mg/dL (7-18) H Creatinine 0.6 MG/DL (0.55-1.30) 0.6 MG/DL (0.55-1.30) Estimat Glomerular Filtration Rate > 60 mL/min (>60) > 60 mL/min (>60) Glucose Level 100 MG/DL (74-106) 98 MG/DL (74-106) Calcium Level 9.8 MG/DL (8.5-10.1) 10.3 MG/DL (8.5-10.1) H Total Bilirubin 0.3 MG/DL (0.2-1.0) Aspartate Amino Transf (AST/SGOT) 100 U/L (15-37) H Alanine Aminotransferase (ALT/SGPT) 35 U/L (12-78) Alkaline Phosphatase 215 U/L (46-116) H Troponin I 0.004 ng/mL (0.000-0.056) Pro-B-Type Natriuretic Peptide 132 pg/mL (0-125) H Total Protein 7.4 G/DL (6.4-8.2) Albumin 3.3 G/DL (3.4-5.0) L Globulin 4.1 g/dL Albumin/Globulin Ratio 0.8 (1.0-2.7) L Urine Color Pale yellow Urine Appearance Clear Urine pH 6 (4.5-8.0) Urine Specific Trevor 1.010 (1.005-1.035) Urine Protein Negative (NEGATIVE) Urine Glucose (UA) Negative (NEGATIVE) Urine Ketones Negative (NEGATIVE) Urine Occult Blood Negative (NEGATIVE) Urine Nitrite Negative (NEGATIVE) Urine Bilirubin Negative (NEGATIVE) Urine Urobilinogen Normal MG/DL (0.0-1.0) Urine Leukocyte Esterase 1+ (NEGATIVE) H Urine RBC 0-2 /HPF (0 - 2) Urine WBC 0-2 /HPF (0 - 2) Urine Squamous Epithelial Cells Few /LPF (NONE/OCC) Urine Bacteria Few /HPF (NONE) Current Medications Medications (Trade) Dose Ordered Sig/Neymar Route PRN Reason Start Time Stop Time Status Last Admin Dose Admin Acetaminophen/ Hydrocodone Bitart ([place] 10/325) 1 ea Q6H PRN ORAL For Pain Scale 4-6 02/04/17 09:30 02/11/17 09:29 Aspirin (Ecotrin) 81 mg DAILY ORAL 02/04/17 09:00 03/06/17 08:59 02/04/17 08:20 Morphine Sulfate (Morphine Sulfate) 2 mg Q4H PRN IVP For Pain scale 7-10 02/04/17 09:30 02/11/17 09:29 02/04/17 14:12 Non-Formulary Medication (Non-Formulary Med) 3 ea DAILY ORAL 02/04/17 09:00 03/06/17 08:59 UNV Zolpidem Tartrate (Ambien) 5 mg HSPRN PRN ORAL Insomnia 02/03/17 21:30 02/10/17 21:29 02/03/17 23:27 Marcy Jean-Baptiste M.D. Feb 04, 2017 15:35
[2017-02-04 16:00] VITALS: BP 106/65
--- NOTE | 2017-02-04 18:15 | Consultation ---
DATE OF CONSULTATION: 02/04/2017 INFECTIOUS DISEASES CONSULTATION CONSULTING PHYSICIAN: Marcy Jean-Baptiste M.D. REQUESTING PHYSICIAN: Andreas Camejo M.D. REASON FOR CONSULTATION: Pneumonia with hemoptysis. Recommendation for antibiotics treatment. HISTORY OF PRESENT ILLNESS: The patient is a 66-year-old female with well known history of lung cancer for two years status post local radiation therapy but no chemo and hepatitis C chronic on treatment with chronic back pain presented to [facility] with progressive hemoptysis over the last two weeks. The patient's cough has been pinkish initially but became thick red with clot so she decided to come into the emergency room for evaluation and management. Denied any fever or chills. No shortness of breath but complained of chest pain sometimes with deep cough and back pain. The patient was recently seen by her oncologist a week ago and they are waiting to finish her treatment for hep C in order to be started on chemotherapy for her lung cancer. 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 PAST SURGICAL HISTORY: Negative. ALLERGIES: No known drug allergy. MEDICATIONS: She is on hydrocodone, morphine, aspirin and zolpidem. FAMILY HISTORY: Noncontributory. SOCIAL HISTORY: The patient is unemployed and lives with family. No recent drugs, tobacco, or alcohol. REVIEW OF SYSTEMS: A 12-point of system reviewed were all negative apart from the one I mentioned above in my History and Physical. PHYSICAL EXAMINATION: VITAL SIGNS: Temperature 97.5, pulse 83, respirations 20, blood pressure 114/76, and saturation 99% on room air. GENERAL: Elderly female, cachectic, lying in bed, awake, alert, not in distress. HEENT: Normocephalic and atraumatic. Pupils are reactive to light. Moist oral mucosa. No exudate. NECK: Supple. No lymphadenopathy. CARDIOVASCULAR: Regular rate and rhythm. No murmur. LUNGS: She had diminished breathing sounds at the bases with crackles. Normal breathing effort. ABDOMEN: Soft, nontender, and nondistended. Positive bowel sounds. No hepatosplenomegaly. No ascites. EXTREMITIES: No edema. No cyanosis. LABORATORY DATA: White count is 9.2, hemoglobin 9.7, and platelet count 333. BUN of 23 and creatinine of 0.6. Urinalysis showed +1 leukocyte esterase, and few bacteria. IMAGING STUDIES: Chest x-ray showed left lung mass, right rib mass, left upper lobe lung nodule consistent with previously demonstrated neoplasm slightly large right apical lung nodule consistent with enlarging metastases possible small left pleural effusion. ASSESSMENT AND RECOMMENDATION: 1. Pneumonia with bloody phlegm. We will send sputum for culture. Start Levaquin empiric treatment for seven days. 2. Lung cancer. Recommend Oncology evaluation. The patient has been recently followed by Dr. tejeda , received radiation but not on chemo. 3. Hemoptysis suspect due to the above. Recommend Pulmonary consult for possible bronchoscopy. 4. Leukemia. Followup with Oncology. Thank you for the consultation. Infectious Disease will continue to follow. Marcy Jean-Baptiste M.D. DR: ANISA JOB#: [id number] CC: JOLIE
[2017-02-04 20:00] VITALS: BP 113/76
--- NOTE | 2017-02-04 22:51 | History and Physical ---
History of Present Illness General Date patient seen: Feb 04, 2017 Reason for Hospitalization: Vomiting Present Illness Allergies: Coded Allergies: No Known Allergies (Unverified , 10/20/15) Medication History Scheduled Aspirin* (Aspir 81*), 81 MG ORAL DAILY, (Reported) Hydrocodone Bit/Acetaminophen 10-325* (Hydrocodon-Acetaminophn 10-325*), 1 TAB ORAL Q4H, (Reported) Miscellaneous Medications Glecaprevir/Pibrentasvir (Mavyret 100-40 Mg Tablet), 1 EACH PO, (Reported) Discontinued Medications Ciprofloxacin* (Cipro*), 500 MG PO BID, (Reported) Discontinued Reason: Pt stopped taking med Clindamycin Hcl* (Clindamycin Hcl*), 300 MG ORAL TID, (Reported) Discontinued Reason: Pt stopped taking med Docusate Sodium* (Colace*), 100 MG ORAL TWICE A DAY, (Reported) Discontinued Reason: Pt stopped taking med Hydrochlorothiazide* (Hydrochlorothiazide*), 25 MG ORAL DAILY, (Reported) Discontinued Reason: Pt stopped taking med Ibuprofen* (Motrin*), 200 MG ORAL Q8H PRN for For Pain, (Reported) Discontinued Reason: Pt stopped taking med Levofloxacin* (Levaquin*), 750 MG ORAL DAILY Discontinued Reason: Pt stopped taking med Lorazepam* (Lorazepam*), 2 MG ORAL PRN, (Reported) Discontinued Reason: Pt stopped taking med Metformin Hcl* (Metformin Hcl*), 500 MG ORAL DAILY, (Reported) Discontinued Reason: Pt stopped taking med Metoprolol Tartrate* (Metoprolol Tartrate*), 25 MG ORAL DAILY, (Reported) Discontinued Reason: Pt stopped taking med Morphine Sulfate* (Ms Contin*), 15 MG ORAL BID PRN for For Pain, (Reported) Discontinued Reason: Pt stopped taking med Oxycodone Hcl* (Oxycodone Hcl*), 5 MG ORAL Q12HR, (Reported) Discontinued Reason: Pt stopped taking med Polyethylene Glycol 3350* (Miralax*), 17 GM ORAL DAILY, (Reported) Discontinued Reason: Pt stopped taking med Sennosides (Senokot), 17.2 MG PO DAILY, (Reported) Discontinued Reason: Pt stopped taking med Tramadol Hcl* (Ultram*), 50 MG ORAL Q6H PRN for For Pain, (Reported) Discontinued Reason: Pt stopped taking med Zolpidem Tartrate* (Zolpidem Tartrate*), 5 MG ORAL BEDTIME PRN for Insomnia, ( Reported) Discontinued Reason: Pt stopped taking med Patient History Healthcare decision maker Resuscitation status Full Code Advanced Directive on File Physical Exam Last 24 Hour Vital Signs Date Time Temp Pulse Resp B/P (MAP) Pulse Ox O2 Delivery O2 Flow Rate FiO2 02/04/17 21:00 100 02/04/17 20:00 98.1 103 20 113/76 96 Room Air 02/04/17 18:35 98.4 02/04/17 16:00 98.4 90 20 106/65 98 02/04/17 15:15 91 02/04/17 12:00 97.5 83 20 114/76 99 Room Air 02/04/17 11:50 95 02/04/17 08:00 97.2 94 21 104/68 99 Room Air 02/04/17 07:21 96 02/04/17 05:42 98.1 02/04/17 04:00 98.1 91 18 113/78 96 Room Air 02/04/17 04:00 92 02/04/17 00:00 86 02/04/17 00:00 97.9 93 17 112/70 Room Air Intake and Output 02/04/17 02/05/17 19:00 07:00 Intake Total 420 ml Balance 420 ml Intake Oral 420 ml # Voids 3 Laboratory Tests Test 02/04/17 10:20 White Blood Count 9.2 K/UL (4.8-10.8) Red Blood Count 3.59 M/UL (4.20-5.40) L Hemoglobin 9.7 G/DL (12.0-16.0) L Hematocrit 31.4 % (37.0-47.0) L Mean Corpuscular Volume 88 FL (80-99) Mean Corpuscular Hemoglobin 27.2 PG (27.0-31.0) Mean Corpuscular Hemoglobin Concent 31.0 G/DL (32.0-36.0) L Red Cell Distribution Width 13.8 % (11.6-14.8) Platelet Count 333 K/UL (150-450) Mean Platelet Volume 7.7 FL (6.5-10.1) Neutrophils (%) (Auto) 65.7 % (45.0-75.0) Lymphocytes (%) (Auto) 18.7 % (20.0-45.0) L Monocytes (%) (Auto) 7.3 % (1.0-10.0) Eosinophils (%) (Auto) 6.8 % (0.0-3.0) H Basophils (%) (Auto) 1.5 % (0.0-2.0) Sodium Level 139 MMOL/L (136-145) Potassium Level 4.6 MMOL/L (3.5-5.1) Chloride Level 103 MMOL/L (98-107) Carbon Dioxide Level 30 MMOL/L (21-32) Anion Gap 6 mmol/L (5-15) Blood Urea Nitrogen 23 mg/dL (7-18) H Creatinine 0.6 MG/DL (0.55-1.30) Estimat Glomerular Filtration Rate > 60 mL/min (>60) Glucose Level 98 MG/DL (74-106) Calcium Level 10.3 MG/DL (8.5-10.1) H Height (Feet): 5 Height (Inches): 4.00 Weight (Pounds): 104 Medications Current Medications Medications (Trade) Dose Ordered Sig/Neymar Route PRN Reason Start Time Stop Time Status Last Admin Dose Admin Acetaminophen/ Hydrocodone Bitart ([place] 10/325) 1 ea Q6H PRN ORAL For Pain Scale 4-6 02/04/17 09:30 02/11/17 09:29 Aspirin (Ecotrin) 81 mg DAILY ORAL 02/04/17 09:00 03/06/17 08:59 02/04/17 08:20 Levofloxacin 100 ml @ 100 mls/hr Q24H IVPB 02/04/17 17:00 02/11/17 16:59 02/04/17 17:07 Morphine Sulfate (Morphine Sulfate) 2 mg Q3H PRN IVP Severe Pain (Pain Scale 7-10) 02/04/17 21:00 02/11/17 20:59 02/04/17 22:17 Non-Formulary Medication (Non-Formulary Med) 3 ea DAILY ORAL 02/04/17 09:00 03/06/17 08:59 UNV Zolpidem Tartrate (Ambien) 5 mg HSPRN PRN ORAL Insomnia 02/03/17 21:30 02/10/17 21:29 02/03/17 23:27 MARILUZ MUIR Feb 04, 2017 22:51
[2017-02-05] VITALS: BP 118/75
[2017-02-05] MEDS: Zolpidem 5mg tab ORAL PRN (00:24)
[2017-02-05] MEDS: Morphine Sulfate 2mg/ml Inj IVP PRN ×4 (01:24→11:29)
[2017-02-05 04:00] VITALS: BP 112/73
[2017-02-05 08:00] VITALS: BP 102/66
[2017-02-05] MEDS: Aspirin EC 81mg tab ORAL SCH (08:04)
[2017-02-05 11:59] VITALS: BP 118/72
--- NOTE | 2017-02-05 13:31 | Infectious Diseases Prog Note ---
Assessment/Plan Problems: (1) Pneumonia Assessment & Plan: continue levaquin empiric coverage for 6 more days, recommend follow up with her oncologist as soon as she leaves the hospital for CT chest and follow up on her lung cancer , monitor sputum culture (2) Lung cancer Assessment & Plan: recommend follow up with her oncologist Dr Negro (3) Hemoptysis Assessment & Plan: due to the above, improved, continue antibiotics for pneumonia treatment . Subjective Constitutional: Reports: no symptoms HEENT: Reports: no symptoms Respiratory: Reports: dry cough Breasts: Reports: no symptoms Cardiovascular: Reports: no symptoms Gastrointestinal/Abdominal: Reports: no symptoms Genitourinary: Reports: no symptoms Neurologic: Reports: no symptoms Psychiatric: Reports: no symptoms Skin: Reports: no symptoms Endocrine: Reports: no symptoms Hematologic: Reports: no symptoms Musculoskeletal: Reports: no symptoms Allergies: Coded Allergies: No Known Allergies (Unverified , 10/20/15) Objective Vital Signs Last 24 Hour Vital Signs Date Time Temp Pulse Resp B/P (MAP) Pulse Ox O2 Delivery O2 Flow Rate FiO2 02/05/17 11:59 97.2 02/05/17 11:59 97.2 100 19 118/72 98 Room Air 02/05/17 08:00 98.8 97 20 102/66 98 Room Air 02/05/17 07:49 101 02/05/17 04:00 98.1 109 16 112/73 97 Room Air 02/05/17 04:00 104 02/05/17 00:00 97.1 74 18 118/75 96 Room Air 02/05/17 00:00 98.1 102 20 118/75 96 Room Air 02/05/17 00:00 90 02/04/17 21:00 100 02/04/17 20:00 98.1 103 20 113/76 96 Room Air 02/04/17 18:35 98.4 02/04/17 16:00 98.4 90 20 106/65 98 02/04/17 15:15 91 Height (Feet): 5 Height (Inches): 4.00 Weight (Pounds): 104 General Appearance: WD/WN, no acute distress HEENT: normocephalic, atraumatic, anicteric, mucous membranes moist, EOMI, pharynx normal, supple Respiratory/Chest: chest wall non-tender, lungs clear, no respiratory distress , no accessory muscle use, decreased breath sounds, crackles/rales Cardiovascular: normal peripheral pulses, normal rate, regular rhythm, no gallop/murmur, no JVD Abdomen: normal bowel sounds, soft, non tender, no organomegaly, non distended , no mass, no scars Extremities: no cyanosis, no clubbing Skin: no rash, no lesions, no ulcers Neurologic/Psychiatric: alert, oriented x 3 Current Medications Medications (Trade) Dose Ordered Sig/Neymar Route PRN Reason Start Time Stop Time Status Last Admin Dose Admin Acetaminophen/ Hydrocodone Bitart ([place] 10/325) 1 ea Q6H PRN ORAL For Pain Scale 4-6 02/04/17 09:30 02/11/17 09:29 Aspirin (Ecotrin) 81 mg DAILY ORAL 02/04/17 09:00 03/06/17 08:59 02/05/17 08:04 Levofloxacin 100 ml @ 100 mls/hr Q24H IVPB 02/04/17 17:00 02/11/17 16:59 02/04/17 17:07 Morphine Sulfate (Morphine Sulfate) 2 mg Q3H PRN IVP Severe Pain (Pain Scale 7-10) 02/04/17 21:00 02/11/17 20:59 02/05/17 11:29 Zolpidem Tartrate (Ambien) 5 mg HSPRN PRN ORAL Insomnia 02/03/17 21:30 02/10/17 21:29 02/05/17 00:24 Marcy Jean-Baptiste M.D. Feb 05, 2017 13:31
[2017-02-05] MEDS ORDERED: LEVAQUIN500 MG ORAL (13:39)
--- NOTE | 2017-02-05 14:33 | Diagnostic Imaging Report ---
APPROVED REPORT CPT Code: 79418 Present Symptoms Comments: R/O DVT BILATERAL: Imaging reveals a patent deep venous system bilaterally. There is no evidence of thrombus within the femoral, popliteal or tibial segments. The greater saphenous veins are also within normal limits. Doppler indicates normal spontaneous flow within these segments.
--- NOTE | 2017-02-06 16:24 | Cardiology Report ---
APPROVED REPORT EKG Measurement Heart [id number] Sinus rhythm with frequent premature ventricular complexes Anterior infarct, age undetermined Abnormal ECG
--- NOTE | 2017-02-07 18:00 | Consultation ---
DATE OF CONSULTATION: 02/05/2017 PULMONARY CONSULTATION CONSULTING PHYSICIAN: Elijah Oliver M.D. REFERRING PHYSICIAN: Andreas Camejo M.D. REASON FOR CONSULTATION: Evaluation of the patient with hemoptysis. I would like to thank Dr. Camejo for the opportunity to evaluate this patient. We will follow with you. HISTORY OF PRESENT ILLNESS: This is an elderly patient with history of lung CA and hemoptysis in the past, has been doing well until two days prior to admission, and she felt to have cough. Due to cough, she did have occasional blood in her sputum. It was very small amount. She decided to come to the emergency room and on evaluation in the emergency room, she was admitted. However, following admission, her hemoptysis had improved significantly. She has been under the care of hematology/oncologist and she is feeling better now and she has occasional cough and she wants to be discharged. No hemoptysis since admission, and she has been on bronchodilator, was started on antibiotics by Infectious Disease. No reports of any PE or DVT. No coagulopathy. She does not have significant orthopnea. No lower extremity edema. She feels she is at her baseline and she insists on being discharged. PHYSICAL EXAMINATION: VITAL SIGNS: Stable. LUNGS: She has diminished breath sounds bilaterally and scattered rhonchi bilaterally. No significant use of accessory muscles. Her speech is normal. CARDIAC: Regular rate. S1 and S2. ABDOMEN: Soft. Bowel sounds present. NEUROLOGIC: Alert and normal speech. Follows commands. EXTREMITIES: No edema, clubbing, or cyanosis. IMPRESSION: Hemoptysis in this patient could be due to her cough and slight trauma to submucosa. She does not have significant bleeding at present. She is known to have lung cancer and has been seen by oncologist and has received treatment. Overall, she is stable and she appears to be at her baseline. The patient is anxious to be discharged and I stated to her that the patient needs to talk to Dr. Camejo, who is the primary physician prior to discharge. From a pulmonary perspective, given that she feels she is at her baseline and there is no significant hematocrit drop, she could be treated as outpatient with oral antibiotics if needed and oxygen. Again, I would like to thank Dr. Camejo for the opportunity to evaluate this patient. We will follow with you. Elijah Oliver M.D. DR: VICTORINO JOB#: [id number] CC:
--- NOTE | 2017-02-08 09:18 | Discharge Summary ---
Discharge Summary Hospital Course Date of Admission Feb 03, 2017 at 17:11 Date of Discharge Feb 05, 2017 at 14:45 Admitting Diagnosis hemoptysis HPI Court Oropeza is a 66 year old female who was admitted on Feb 03, 2017 at 17:11 for Hemoptysis Hospital Course dc summary #[id number] Discharge Medications Continued Medications: Aspirin* (Aspir 81*) 81 Mg Tablet.dr 81 MG ORAL DAILY, TAB Levofloxacin* (Levaquin*) 500 Mg Tablet 500 MG ORAL DAILY for 6 Days, TAB Discontinued Medications: Glecaprevir/Pibrentasvir (Mavyret 100-40 Mg Tablet) 1 Each Tablet 1 EACH PO, TAB Hydrocodone Bit/Acetaminophen 10-325* (Hydrocodon-Acetaminophn 10-325*) 1 Each Tablet 1 TAB ORAL Q4H, #30 TAB 0 Refills Discharge Discharge Disposition Patient was discharged to Home (01) Discharge Diagnoses: Discharge Instructions Discharge Instructions Special Instructions I have been assigned to complete a D/C Summary on this account. I was not involved in the patient management Jocelin Blanchard NP ([place]) Feb 08, 2017 09:18
--- NOTE | 2017-02-08 21:15 | Discharge Summary 2 SIG ---
DATE OF ADMISSION: 02/03/2017 DATE OF DISCHARGE: 02/05/2017 REASON FOR ADMISSION: 66-year-old female with a known history of metastatic lung cancer, leukemia, had radiation but no chemotherapy, history of hepatitis C, and chronic back pain, presented with hemoptysis. No fever. No chills. No shortness of breath. The patient also reported chronic back pain, which exacerbated in the last two weeks. Pulse oximetry was stable. The patient had additional two episodes of hemoptysis in the emergency department. Chest x-ray revealed left lung mass. Laboratory workup was unremarkable. Mild anemia with hemoglobin -10.1 and hematocrit- 32.4. CTA was done on 01/27/2017 and revealed evidence of metastatic disease with ribs metastasis, but no evidence of PE.The patient was medicated for pain and admitted to telemetry floor for further management with diagnoses of hemoptysis, chronic pain, and lung cancer. HOSPITAL COURSE: The patient was admitted to telemetry floor. Director Diversity and ID consults were requested. Venous duplex of bilateral lower extremities was negative. No fever. No leukocytosis. Hemoglobin and hematocrit were closely followed, remained on the baseline. Supplemental oxygen to keep saturation above 92% was on board, however, pulse oximetry was stable on room air. No shortness of breath. Director Diversity had seen and evaluated the patient and stated that hemoptysis was probably due to cough, slight trauma to submucosa, lung Ca. There was no significant bleeding at that time. The patient with known history of lung cancer and follows up with oncologist. Per paint roller covermaker, the patient was stable and appeared to be at baseline. Director Diversity stated the patient can be discharged home on oral antibiotic as needed per ID recommendation and follow up with oncologist. Infectious Diseases doctor closely followed the patient. Patient was diagnosed with pneumonia. The patient was started empirically on Levaquin. Sputum culture was not collected, since cough was dry and nonproductive, patient refused induction of sputum. Infectious Diseases doctor recommended to continue oral Levaquin upon discharge for additional six days and follow up with oncologist. The patient was stable for discharge. FINAL DIAGNOSES: 1. Hemoptysis likely secondary to pneumonia and lung cancer. 2. Pneumonia. 3. Lung cancer. 4. Chronic pain. 5. Leukemia. 6. Chronic back pain. DISCHARGE MEDICATIONS: See medication reconciliation list. DISCHARGE INSTRUCTIONS: The patient was discharged home. FOLLOWUP: Follow up with the oncologist. Follow up with the primary medical doctor this week. Andreas Camejo M.D. I have been assigned to dictate discharge summary on this account and I was not involved in the patient's management. Jocelin ManzanaresWyckoff Heights Medical CenterLuli NDevynPDevyn DR: SAMMY JOB#: [id number] CC: JOLIE
== END 2017-02-05 14:45 | disposition home or self-care (01) | DRG 139 ==
LOC: EMR 17:10 → 2E 17:11 → EDBEDREQ 17:54
DX: J18.9 Pneumonia, unspecified organism (principal); C79.51 Secondary malignant neoplasm of bone; C95.90 Leukemia, unspecified not having achieved remission; C34.92 Malignant neoplasm of unspecified part of left bronchus or lung; R04.2 Hemoptysis; D64.9 Anemia, unspecified; M54.9 Dorsalgia, unspecified; Z86.19 Personal history of other infectious and parasitic diseases; Z92.3 Personal history of irradiation; G89.29 Other chronic pain
CPT/HCPCS: 36415; 71010; 80048; 80053; 81003; 83880; 84484; 85025; 85610; 85730; 86850; 86870; 86900; 86901; 93005; 93970; 99285

== ENCOUNTER 2017-05-05 16:52 | Emergency (ER) | payer OTHER ==
[~2017-05-05] VITALS: Ht 165.1 cm; Wt 49.9 kg
[~2017-05-05 16:52] MED LIST changes: +LEVAQUIN500 MG ORAL
--- NOTE | 2017-05-05 17:04 | Emergency Room Report ---
History of Present Illness General Chief Complaint: Back Pain-No Injury Source: EMS Present Illness HPI 66-year-old female presents to the emergency department complaining of 10 out of 10 in severity back pain, left shoulder and left arm pain x2 days. Patient reports she has been taking her oxycodone which is prescribed for her history of cancer and has not had any relief. Patient denies trauma or fall she reports new onset weakness in the left arm and pain upon movement. Patient denies loss of sensation. She states she has history of lower lobe lung cancer x4 years she also had a history of spinal tumor which was surgically removed and she has had chronic back pain or percent. She denies fevers, chills, nausea , vomiting, chest pain or abdominal pain. Patient denies skin color changes in the affected extremity or changes in temperature. Denies numbness tingling or loss of sensation or gross motor movements of the extremities, incontinence of bowel or bladder. Denies CP, Palpitations, LOC, AMS, dizziness, Changes in Vision, Sensation, paresthesias, or a sudden severe headache. Allergies: Coded Allergies: No Known Allergies (Unverified , 10/20/15) Patient History Past Medical History: see triage record, other - lung cancer with spinal metastasis. Past Surgical History: other Pertinent Family History: none Last Menstrual Period: Post Now: No Reviewed Nursing Documentation: PMH: Agreed, PSxH: Agreed Nursing Documentation-PMH Hx Hypertension: Yes Hx Cancer: Yes - Lung cancer. Hx Gastrointestinal Problems: Yes Hx Neurological Problems: Yes - cord compression Review of Systems All Other Systems: negative except mentioned in HPI Physical Exam Vital Signs Date Time Temp Pulse Resp B/P (MAP) Pulse Ox O2 Delivery O2 Flow Rate FiO2 05/05/17 16:50 97.1 84 18 134/80 98 Room Air 97.2 Sp02 EP Interpretation: reviewed, normal General Appearance: alert, GCS 15, non-toxic, mild distress Head: normocephalic, atraumatic Eyes: bilateral eye normal inspection, bilateral eye PERRL ENT: hearing grossly normal, normal voice Neck: full range of motion, tender lateral - left lateral down into the left shoulder on ttp, limited ROM due to pain Respiratory: chest non-tender, lungs clear, normal breath sounds, no respiratory distress, no retraction, no wheezing, speaking full sentences Cardiovascular #1: regular rate, rhythm Gastrointestinal: normal bowel sounds, non tender, soft Rectal: deferred Genitourinary: normal inspection Musculoskeletal: back normal, gait/station normal, normal range of motion, tender - TTp to the left shoulder and left forearm, no TTp in the hand, no swelling, no bruises, no obvious deformity, equal sensation. limited ROM due to pain and weakness in the left upper extremity. Neurologic: alert, oriented x3, responsive, motor strength/tone normal, sensory intact, speech normal, other - normal sensory in left upper extremity, FROM of all fingers, weakness in the left arm. , grossly normal Psychiatric: judgement/insight normal Skin: normal color, no rash, warm/dry, well hydrated Medical Decision Making PA Attestation Dr. suggs is my supervising Physician whom patient management has been discussed with. Diagnostic Impression: Primary Impression: Intractable pain Additional Impressions: Hx of cancer of lung Anemia Qualified Codes: D64.9 - Anemia, unspecified ER Course 66-year-old female presents to the emergency department complaining of 10 out of 10 in severity back pain, left shoulder and left arm pain x2 days. Patient reports she has been taking her oxycodone which is prescribed for her history of cancer and has not had any relief. Patient denies trauma or fall she reports new onset weakness in the left arm and pain upon movement. Patient denies loss of sensation. She states she has history of lower lobe lung cancer x4 years she also had a history of spinal tumor which was surgically removed and she has had chronic back pain or percent. She denies fevers, chills, nausea , vomiting, chest pain or abdominal pain. Patient denies skin color changes in the affected extremity or changes in temperature. Denies numbness tingling or loss of sensation or gross motor movements of the extremities, incontinence of bowel or bladder. Denies CP, Palpitations, LOC, AMS, dizziness, Changes in Vision, Sensation, paresthesias, or a sudden severe headache. Ddx considered but are not limited to thrombolytic event, metastasis, fracture/ dislocation, cardiac event just to name a few. Vital signs: are WNL, pt. is afebrile H&PE are most consistent with ORDERS: -CBC: significant for anemia -CMP: unremarkable - Troponin: negative/WNL - CK: WNL - EK Sinus Tach, no acute ST elevation, reviewed by Dr. Wick. -CXR: Left sided lung mass , no atelectasis. ED INTERVENTIONS: -Toradol IV - Morphine IV 4mg, then 4mg, ( dose had complication durring IV administration so another 2mg was ordered to compensate DISPOSITION: at this time pt. will be admitted to Dr. Nguyen for Weakness, anemia and intractable pain. Dr. Nguyen agreed to admit the pt. and to continue pt. care management via telephone conversation 1907. pt. will be transferred to [facility]. Labs Test 05/05/17 17:29 White Blood Count 9.2 K/UL (4.8-10.8) Red Blood Count 3.53 M/UL (4.20-5.40) Hemoglobin 8.8 G/DL (12.0-16.0) Hematocrit 28.6 % (37.0-47.0) Mean Corpuscular Volume 81 FL (80-99) Mean Corpuscular Hemoglobin 25.0 PG (27.0-31.0) Mean Corpuscular Hemoglobin Concent 30.9 G/DL (32.0-36.0) Red Cell Distribution Width 16.4 % (11.6-14.8) Platelet Count 345 K/UL (150-450) Mean Platelet Volume 6.9 FL (6.5-10.1) Neutrophils (%) (Auto) 72.4 % (45.0-75.0) Lymphocytes (%) (Auto) 17.8 % (20.0-45.0) Monocytes (%) (Auto) 5.5 % (1.0-10.0) Eosinophils (%) (Auto) 3.3 % (0.0-3.0) Basophils (%) (Auto) 1.1 % (0.0-2.0) Sodium Level 135 MMOL/L (136-145) Potassium Level 4.5 MMOL/L (3.5-5.1) Chloride Level 101 MMOL/L (98-107) Carbon Dioxide Level 28 MMOL/L (21-32) Anion Gap 6 mmol/L (5-15) Blood Urea Nitrogen 18 mg/dL (7-18) Creatinine 0.5 MG/DL (0.55-1.30) Estimat Glomerular Filtration Rate > 60 mL/min (>60) Glucose Level 95 MG/DL (74-106) Calcium Level 9.2 MG/DL (8.5-10.1) Total Bilirubin 0.4 MG/DL (0.2-1.0) Aspartate Amino Transf (AST/SGOT) 96 U/L (15-37) Alanine Aminotransferase (ALT/SGPT) 10 U/L (12-78) Alkaline Phosphatase 256 U/L (46-116) Total Creatine Kinase 50 U/L (26-308) Troponin I 0.000 ng/mL (0.000-0.056) Total Protein 6.9 G/DL (6.4-8.2) Albumin 2.8 G/DL (3.4-5.0) Globulin 4.1 g/dL Albumin/Globulin Ratio 0.7 (1.0-2.7) EKG Diagnostic Results EP Interpretation: Dr. Wick Rate: tachycardiac - 111 BPM Rhythm: NSR ST Segments: no acute changes ASA given to the pt in ED: No PA Scribe Text interpreted by Dr. Wick his interpretation was scribed by PER Ramirez Chest X-Ray Diagnostic Results Chest X-Ray Diagnostic Results : Chest X-Ray Ordered: Yes # of Views/Limited/Complete: 1 View Indication: Other - hx of ca EP Interpretation: Yes PA Xray: Interpretation reviewed, by supervising MD Interpretation: no pneumothorax, other - Left sided lung mass Impression: Other - abnormal Electronically Signed by: Lanie Ramirez PA-C Last Vital Signs Date Time Temp Pulse Resp B/P (MAP) Pulse Ox O2 Delivery O2 Flow Rate FiO2 05/05/17 16:50 97.1 84 18 134/80 98 Room Air 97.2 Disposition: ADMITTED INPATIENT Condition: Serious Lanie Ramirez May 05, 2017 17:04
[2017-05-05] MEDS ORDERED: Morphine Sulfate 4mg/ml Inj IVP ONE (17:15)
[2017-05-05 17:35] LABS: BASOPHILS % (AUTO) 1.1 % (0.0-2.0); EOSINOPHILS % (AUTO) 3.3 % (0.0-3.0); HEMATOCRIT 28.6 % (37.0-47.0); HEMOGLOBIN 8.8 G/DL (12.0-16.0); LYMPHOCYTES % (AUTO) 17.8 % (20.0-45.0); MEAN CORPUSCULAR VOLUME 81 FL (80-99); MONOCYTES % (AUTO) 5.5 % (1.0-10.0); NEUTROPHILS % (AUTO) 72.4 % (45.0-75.0); PLATELET COUNT 345 K/UL (150-450); RED BLOOD COUNT 3.53 M/UL (4.20-5.40); RED CELL DISTRIBUTION WIDTH 16.4 % (11.6-14.8); WHITE BLOOD COUNT 9.2 K/UL (4.8-10.8)
[2017-05-05 18:01] LABS: ANION GAP 6 mmol/L (5-15); BLOOD UREA NITROGEN 18 mg/dL (7-18); CALCIUM 9.2 MG/DL (8.5-10.1); CARBON DIOXIDE 28 MMOL/L (21-32); CHLORIDE 101 MMOL/L (98-107); CREATININE 0.5 MG/DL (0.55-1.30); POTASSIUM 4.5 MMOL/L (3.5-5.1); SODIUM 135 MMOL/L (136-145)
[2017-05-05 18:02] VITALS: BP_SYST 124; BP_SYST 136; BP_DIAS 75; BP_DIAS 78
[2017-05-05 18:06] LABS: ALANINE AMINOTRANSFERASE 10 U/L (12-78); ALBUMIN 2.8 G/DL (3.4-5.0); ALBUMIN/GLOBULIN RATIO 0.7 (1.0-2.7); ALKALINE PHOSPHATASE 256 U/L (46-116); ASPARTATE AMINO TRANSFERASE 96 U/L (15-37); BILIRUBIN,TOTAL 0.4 MG/DL (0.2-1.0); CREATINE KINASE 50 U/L (26-308)
[2017-05-05] MEDS ORDERED: OXYCODONE-ACET1 EAC3 (18:18)
[2017-05-05] MEDS ORDERED: MORPHINE IR15 MG (18:18)
[2017-05-05] MEDS: Morphine Sulfate 4mg/ml Inj IVP ONE ×2 (18:42→18:57)
[2017-05-05] MEDS ORDERED: Morphine Sulfate 2mg/ml Inj IVP ONE ×2 (19:00→21:30)
[2017-05-05 19:23] VITALS: BP 130/75
[2017-05-05] MEDS ORDERED: Ketorolac 30mg Inj IV ONE (21:30)
[2017-05-05 22:45] VITALS: BP 126/71
--- NOTE | 2017-05-06 09:33 | Diagnostic Imaging Report ---
Indication: Chest pain Technique: One view of the chest Comparison: 02/03/2017 Findings: There has been interim enlargement of previously demonstrated left lower lobe mass. Current dimensions somewhat difficult to estimate as there is considerable surrounding opacity, but appears to measure about 8 cm long axis dimension. There is pleural thickening versus fluid on the left which is also evident previously but increased. Increased opacity in the right midlung periphery likely reflects tumor within the right ribs which was demonstrated on prior CT scans, appears to be increased on the current exam. Multiple small nodules are also seen in both lungs. Spinal fusion hardware, midthoracic compression fracture again demonstrated. The heart is upper limits of normal in size Impression: Increased size left lower lobe mass, previously thought to represent neoplasm, since 02/03/2017. Increasing surrounding opacity may reflect surrounding brachial consolidation or pleural fluid Evidence of increased metastatic disease elsewhere, as described Other findings as noted
--- NOTE | 2017-05-07 11:35 | Cardiology Report ---
APPROVED REPORT EKG Measurement Heart [id number] Sinus tachycardia Septal infarct, age undetermined Abnormal ECG
== END 2017-05-05 22:45 | disposition other institution (70) ==
LOC: EDBD 16:52 → EMR 17:26
DX: M54.9 Dorsalgia, unspecified (principal); M25.512 Pain in left shoulder; M79.632 Pain in left forearm; D64.9 Anemia, unspecified; G89.29 Other chronic pain; I10 Essential (primary) hypertension; Z85.118 Personal history of other malignant neoplasm of bronchus and lung
CPT/HCPCS: 36415; 71045; 80053; 82550; 84484; 85025; 93005; 99285; J1885; J2270